=== PATIENT | male | born 1975 | race Caucasian/White ===

== ENCOUNTER 2017-09-01 17:40 | Inpatient (IN) ==
[2017-09-01] MEDS ORDERED: NORMAL SALINE 10 ML SYRINGE FLUSH IVP PRN ×2 (18:09→21:03)
[2017-09-01] MEDS ORDERED: Sodium Chloride 0.9% 1,000 ML PRIMARY IV ONE (18:09)
[2017-09-01 18:51] LABS: BASOPHILS # (AUTO) 0.04 10*3/UL; BASOPHILS % (AUTO) 0.2 % (0-1); EOSINOPHILS # (AUTO) 0.06 10*3/UL; EOSINOPHILS % (AUTO) 0.3 % (0-8); Hematocrit [HCT] 51.3 % (42.0-52.0); Hemoglobin [HGB] 17.6 g/dL (14.0-18.0); LYMPHOCYTES # (AUTO) 2.88 10*3/uL; MEAN CORPUSCULAR HEMOGLOBIN 29.8 PG (27-31); MEAN CORPUSCULAR HGB CONC 34.3 g/dL (33-37); MEAN CORPUSCULAR VOLUME 86.9 FL (80-90); MEAN PLATELET VOLUME 9.8 FL (7.4-12.2); MONOCYTES # (AUTO) 1.85 10*3/UL (0.3-0.8); MONOCYTES % (AUTO) 9.2 % (5-15); NEUTROPHILS # (AUTO) 15.13 10*3/UL; NEUTROPHILS % (AUTO) 75.6 % (50-80)
[2017-09-01 19:05] LABS: BLOOD UREA NITROGEN 14 mg/dL (7-22); SERUM ALBUMIN 3.7 g/dL (3.5-4.8)
[2017-09-01 19:07] LABS: PLATELET MORPHOLOGY COMMENT NORMAL MORPHOLOGY (NORM); RBC MORPHOLOGY COMMENT NORMAL MORPHOLOGY (NORM); WBC MORPHOLOGY COMMENT NORMAL MORPHOLOGY (NORM)
--- NOTE | 2017-09-01 20:00 | PDOC ---
HPI - History of Present Illness History of Present Illness: Is a very nice 42-year-old gentleman with past medical history of diabetes he has not been taking his medications for over the last couple of months comes into the emergency room complaining of an ulcer of the plantar part of his right foot under his big toe complains of some chills and his diabetes diagnosis is back 10 years ago his foot hurts quite a bit. Past Medical History Medical History: Diabetes uncontrolled Surgical History: Diabetic foot ulcer Tobacco Use: Current Every Day Smoker Do you dip or chew tobacco: No In the Past 12 Months, Have Used or Abuse Any of the Following Substance: None Alcohol Use: None Medication / Allergies Home Medications: Home Medications 3 Medication Instructions Recorded Confirmed Type NK [NK] 09/01/17 09/01/17 History Allergies/Adverse Reactions: Allergies 3 Allergy/AdvReac Type Severity Reaction Status Date / Time No Known Allergies Allergy Verified 09/01/17 20:45 Review of Systems - Review of Systems All Systems: Reviewed & No Additional Complaints Except as Stated - Respiratory Respiratory: DENIES: Negative System Review, Cough, Sputum, Dyspnea At Rest, Dyspnea with Exertion, Pleuritic Pain, Hemoptysis, Wheezing, Other, See HPI - Cardiovascular Cardiovascular: DENIES: Negative System Review, Chest Pain, Edema, Syncope, Palpitations, Orthopnea, Paroxysmal Nocturnal Dyspnea, Other, See HPI - Gastrointestinal Gastrointestinal / Abdominal: DENIES: Negative System Review, Nausea, Vomiting, Diarrhea, Constipation, Abdominal Pain, Bloody Stool, Poor Appetite, Heartburn, Regurgitation, Bloating, Lactose Intolerance, Melena, Bright Red Blood per Rectum, Other, See HPI - Musculoskeletal Musculoskeletal: REPORTS: Other (Diabetic foot ulcer on the right) Exam - Vitals Vital Signs: Vital Signs Temperature 97.4 F Temperature Source Temporal Artery Scan Pulse Rate [Pulse Oximeter] 107 Respiratory Rate 18 Blood Pressure [Left Radial 122/104 Artery] Pulse Ox 94 Oxygen Delivery Method Room Air Height 6 ft 5 in Weight 310 lb - General General Appearance: No Acute Distress, Cooperative - Eye Eye Exam: POSITIVE: Normal Appearance, PERRL, EOMI, No Scleral Icterus - ENT ENT Exam: POSITIVE: Normal Exam, Normal External Ear Exam, Normal Oropharynx, TM 's Normal Bilaterally, Mucous Membranes Moist - Respiratory Respiratory Exam: POSITIVE: Clear to Auscultation - Bilaterally, Breathing Non Labored, Normal To Percussion, Normal to Percussion and Palpation - Cardiovascular Cardiovascular Exam: POSITIVE: RRR, No Murmur, No Clicks, No Gallops, No Rubs, PMI Non-Displaced - GI/Abdominal GI/Abdominal Exam: POSITIVE: Normal Bowel Sounds, Non Tender, Non Distended, Soft, No Masses, No Hepatomegaly, No Splenomegaly, No Organomegaly - Extremities Additional Extremities Exam Details: Diabetic foot ulcer plantar area on the right big toe dressed by wound care losing not able to bear weight - Neurological Neurological Exam: POSITIVE: Alert, Oriented x 3, No Facial Droop, Speech Intact / Clear - Psychiatric Psychiatric Exam: POSITIVE: Normal Affect, Normal Mood Results - Labs CBC and BMP: 09/02/17 04:45 09/02/17 04:45 Assessment and Plan - Patient Problems (1) Diabetic foot ulcer Current Visit: Yes Status: Acute Comment: Consult wound care consult with Dr. Ann x-ray ordered for possible debridement will start Zosyn IV and vancomycin Code(s): E11.621 - Type 2 diabetes mellitus with foot ulcer; L97.509 - Non- pressure chronic ulcer of other part of unspecified foot with unspecified severity (2) Cellulitis Current Visit: Yes Status: Acute Comment: Start Zosyn IV elevated white count and vancomycin Code(s): L03.90 - Cellulitis, unspecified (3) Diabetes 1.5, managed as type 2 Current Visit: Yes Status: Acute Comment: Patient has not been treated for this check hemoglobin A1c current sugars are around 200 I will start Lantus 5 units tonight his morning sugar was around 220 hemoglobin A1c 9.5 Code(s): E10.9 - Type 1 diabetes mellitus without complications
[2017-09-01 20:15] LABS: HEMOGLOBIN A1C 9.47 % (4.2-6.0)
[2017-09-01] MEDS ORDERED: CALCIUM CARBONATE 500 MG (TUMS) CHEWABLE TABLET PO PRN (21:03)
[2017-09-01] MEDS ORDERED: ONDANSETRON 4 MG/2 ML VIAL IVP PRN (21:03)
[2017-09-01] MEDS ORDERED: LIDOCAINE W/ SODIUM BICARB 0.5 ML SYR SUBD PRN (21:03)
[2017-09-01] MEDS ORDERED: ACETAMINOPHEN 325 MG TABLET PO PRN (21:03)
[2017-09-01] MEDS ORDERED: fentaNYL Inj 100 MCG/2 ML VIAL IVP PRN (21:03)
[2017-09-01] MEDS ORDERED: DOCUSATE 100 MG CAPSULE PO PRN (21:03)
[2017-09-01] MEDS: Sodium Chloride 0.9% 1,000 ML PRIMARY IV SCH (22:07)
[2017-09-01] MEDS: Piperacillin/Tazobactam Inj 4.5 GM in Sodium Chloride 0.9% 100 ML IV SCH (22:07)
[2017-09-01] MEDS: HEPARIN 5000 UNIT/1 ML SUBCUT SCH (22:07)
[2017-09-01] MEDS: HYDROcodone-APAP 5 MG -325 MG TABLET PO PRN (22:18)
[2017-09-02] MEDS: HYDROcodone-APAP 5 MG -325 MG TABLET PO PRN ×4 (02:55→18:06)
[2017-09-02] MEDS: Piperacillin/Tazobactam Inj 4.5 GM in Sodium Chloride 0.9% 100 ML IV SCH ×4 (02:55→20:24)
[2017-09-02] MEDS: HEPARIN 5000 UNIT/1 ML SUBCUT SCH ×3 (04:39→20:24)
--- NOTE | 2017-09-02 05:13 | PDOC ---
Lower Extremity Problem HPI - General Chief Complaint: Lower Extremity Problem/Injury Stated Complaint: RIGHT FOOT ULCER x2 WEEKS Date Seen by Provider: 09/01/17 Time Seen by Provider: 17:50 Source: POSITIVE: Patient Exam Limitations: POSITIVE: No limitations Nurse's Notes Reviewed & Considered: Yes - History of Present Illness Initial Comments: The patient is a 42-year-old male. He presents to the emergency room complaining of a ulcer to the sole of his right foot, ulnar aspect over the distal right metatarsal for the past 2 weeks. This is gotten progressively worse. He states that he has had some "chills". Patient states that he was diagnosed with diabetes mellitus 10 years ago, but is not taking any medications. He thinks he may be having intermittent fevers. He is noted some redness and swelling to the distal aspect of the right lower leg and over the right foot laterally. He states he's noted a foul-smelling discharge. He states the lesion is quite painful. Patient has chronic hoarseness since the child, following intubation for a "viral encephalitis". He has a history of having had surgery to his throat. Body Location Affected: REPORTS: Lower Extremity (R) Timing: REPORTS: Gradual, Getting Worse Duration: >1 week (Progressively worse over the past 2 weeks) Severity: Moderate Recent Injury: REPORTS: No Context of Injury: REPORTS: Other (As above) Location at Time of Onset: REPORTS: Home Quality: REPORTS: "Pain" Modifying Factors: REPORTS: Walking, Other (Pain is exacerbated by walking and direct palpation) Associated Symptoms: REPORTS: Other (Chills and subjectively fever) Similar Symptoms Previously: No Recent Care Received: REPORTS: Denies Any Prior Injuries Related to Current Complaint?: No - Patient Home Medications Home Medications: Home Medications NK [NK] 09/01/17 - Patient Allergies Allergies/Adverse Reactions: Allergies 3 Allergy/AdvReac Type Severity Reaction Status Date / Time No Known Allergies Allergy Verified 09/01/17 20:45 Past Medical History - heen HEENT History: Other (please comment) Additional HEENT History: 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 REQUIRED 21 SURGERIES FROM AGE 3-8 YRS OLD Cardiovascular History: Hypertension Additional Cardiovasular History: REPORTS REMOTE HX. STATES NONE FOR 5-6 YRS Respiratory History: Asthma, Pneumonia, Other (please comment) Additional Respiratory History: FREQUENT BRONCHITIS. ATHLETIC INDUCED ASTHMA. HISTORY OF VIRAL ENCEPHALITIS AT AGE 1 RESULTING IN VOCAL CORD AND TRACHEAL DAMAGE AND PERMANENT HOARSENESS OF VOICE Gastrointestinal History: Other (please comment) Additional Gastrointestinal History: ABDOMINAL HERNIA Genitourinary History: Denies History Endocrine History: Type 2 Diabetes (diet) Additional Endocrine History: DIAGNOSED 10 YEARS AGO (STATES HE TOOK INSULIN FOR A SHORT TIME BUT FELT WORSE TAKING IT THAN WHEN NOT TAKING IT) Musculoskeletal History: Denies History Prosthesis or Implant: No Neurological History: Encephalitis Additional Neurological History: DIABETIC NEUROPATHY Blood Disorders: Denies History Psychiatric History: Denies History History of Sexually Transmitted Diseases: No Male Reproductive History: Denies History Cancer History: Denies History In Past Year Been Physically Harmed or Verbally Threatened: No (PER PATIENT) History of MDRO: No History of Other Communicable Diseases: No Tobacco Use: Current Every Day Smoker Type of alcohol normally used: Beer, Hard Liquor In the Past 12 Months, Have Used or Abuse Any Substance: None Previous Surgical History: Yes Type / Date of Surgery: THROAT SURGERY x21 Anesthesia Reactions: No Malignant Hyperthermia: No Family History of Malignant Hyperthermia: No Significant Family History: No pertinent family hx Past Medical History Reviewed: Reviewed - No Changes ROS - Limitations ROS Limitations: No Limitations Constitution: REPORTS: Chills, Fever (Subjectively) Cardiovascular: REPORTS: Denies Cardiac Symptoms Respiratory: REPORTS: Denies Resp Symptoms Neurological: REPORTS: Denies Neuro Symptoms Gastrointestinal: REPORTS: Denies GI Symptoms Endocrine: REPORTS: Denies Symptoms Musculoskeletal: REPORTS: Other (Ulcer plantar aspect of the right foot laterally with associated cellulitis) Genitourinary: REPORTS: Denies Symptoms Eyes: REPORTS: Denies Symptoms ENT: REPORTS: Denies Symptoms Skin: REPORTS: Other (Ulnar and her aspect of right foot as above; see diagram; associated cellulitis) Lympathic: REPORTS: Denies Lympathic Symptoms Immunologic: POSITIVE: Denies Symptoms Psychiatric: POSITIVE: Denies Psych Symptoms Lower Ext Problem Exam - General Appearance General Appearance: POSITIVE: Alert, Cooperative, No Acute Distress, No Evidence of Trauma - Extremities Lower Extremity: POSITIVE: Foot (Ulcer plantar aspect right foot as above; see diagram), Tenderness, Swelling, Pedal Edema (Cellulitis as above) Joint Exam: POSITIVE: Joints Normal, Normal ROM, Normal Gait, Normal Weight Bearing Vascular: POSITIVE: Full Pulses, Equal Pulses - Neuro / Psych Neuro/Psych: POSITIVE: Sensation Normal, Motor Normal, Oriented to Person, Oriented to Place, Oriented to Time, vehicle fare collector Normal as Tested, Mood Appropriate, Affect Appropriate - Neck / Back / Pelvis Back / Neck: POSITIVE: Normal Inspection, Normal ROM - Skin Skin: POSITIVE: Warmth, Erythema (Cellulitis lower right leg with ulcer plantar aspect right foot with some foul-smelling discharge; see diagram) - HEENT HEENT: POSITIVE: Head Inspection Nml, Eyes Inspection Nml, Ears Inspection Nml, Nose Inspection Nml, Oral/Dental Inspect. Nml, Pharynx Inspect. Nml, PERRL, EOMI - Respiratory / CVS Respiratory / CVS: POSITIVE: No Respiratory Distress, Breath Sounds Normal, Regular Rate/Rhythm, Heart Sounds Normal Peripheral Pulses: Radial (R): 2+, Radial (L): 2+, Dorsalis-pedis (R): 2+, Dorsalis-pedis (L): 2+ - Abdomen Abdomen: Soft: (All Quadrants), Normal Bowel Sounds: (All Quadrants), Denies Tenderness: (All Quadrants), No Splenomegaly: (All Quadrants), No Hepatomegaly: (All Quadrants), No Guarding: (All Quadrants), No Rebound: (All Quadrants), No Palpable Pulse: (All Quadrants), No Palpabale Mass: (All Quadrants), No Distention: (All Quadrants), No Rigidity: (All Quadrants) Images - Uploaded Photos Uploaded Photos: - Lower Extremities Feet: 1 - Ulcer 2 - Cellulitis 3 - Cellulitis 4 - Cellulitis 5 - Cellulitis Lower Ext Problem Progress - Results Reviewed by me Lab Results Reviewed by Me: Yes (blood cultures done; aerobic and anaerobic wound cultures taken) CBC and BMP: 09/01/17 18:40 09/01/17 18:40 - Patient's Progress Pain Medication Addressed: POSITIVE: Patient Refused School/Work Release Addressed: POSITIVE: Not Applicable Re-Examine Time: 19:35 Status: POSITIVE: Unchanged, Re-Examined - Consult Consult (If Yes, Name of Consulting MD & Time Called): Yes (Dr. Ochoa, hospitalist, 1935) Consulting MD will see pt:: POSITIVE: [facility] Admit Counseled: POSITIVE: Patient, Family, RE: Lab Results, RE: DX, RE: Need for F/U Patient Care Time - Estimated PCT Patient Care Time (In Minutes): 50 Vital Signs - VS Reviewed Vital Signs Reviewed: Yes Discharge Clinical Impression: Diabetic foot ulcer, Cellulitis, Diabetes mellitus Discharge Disposition: Admit to Inpatient Condition: Stable Date Decision to Admit to Inpatient: 09/01/17 Time Decision to Admit to Inpatient: 19:35
[2017-09-02 05:24] LABS: BASOPHILS # (AUTO) 0.03 10*3/UL; BASOPHILS % (AUTO) 0.2 % (0-1); EOSINOPHILS # (AUTO) 0.11 10*3/UL; EOSINOPHILS % (AUTO) 0.6 % (0-8); Hematocrit [HCT] 46.1 % (42.0-52.0); Hemoglobin [HGB] 15.3 g/dL (14.0-18.0); LYMPHOCYTES # (AUTO) 2.05 10*3/uL; MEAN CORPUSCULAR HEMOGLOBIN 28.9 PG (27-31); MEAN CORPUSCULAR HGB CONC 33.2 g/dL (33-37); MEAN CORPUSCULAR VOLUME 87.1 FL (80-90); MEAN PLATELET VOLUME 10.2 FL (7.4-12.2); MONOCYTES # (AUTO) 2.38 10*3/UL (0.3-0.8); MONOCYTES % (AUTO) 12.2 % (5-15); NEUTROPHILS # (AUTO) 14.96 10*3/UL; NEUTROPHILS % (AUTO) 76.2 % (50-80); RED BLOOD COUNT 5.29 10^6/uL (4.70-6.10)
[2017-09-02] MEDS ORDERED: Sodium Chloride 0.9% 1,000 ML ONE (05:48)
[2017-09-02 05:57] LABS: BLOOD UREA NITROGEN 12 mg/dL (7-22); PLATELET MORPHOLOGY COMMENT NORMAL MORPHOLOGY (NORM); RBC MORPHOLOGY COMMENT NORMAL MORPHOLOGY (NORM); WBC MORPHOLOGY COMMENT NORMAL MORPHOLOGY (NORM)
[2017-09-02] MEDS: Sodium Chloride 0.9% 1,000 ML PRIMARY IV SCH ×2 (07:10→23:16)
--- NOTE | 2017-09-02 14:49 | DI ---
XR FOOT COMPLETE MIN 3VW,09/02/2017 12:33 PM: Clinical History: Skin lesion involving the plantar aspect of the lateral right foot. Previous Exam: None at this facility. Findings: 3 views of the right foot are obtained, and demonstrate anatomic alignment. There is no fracture iden tified. There is overlying packing noted in the interspace between the fourth and fifth distal metata rsals as well as over the right fifth metatarsal and right fifth phalanx. There is some soft tissue swelling. There is no definite periosteal reaction identified and no ostial lysis. Impression: No definite evidence of acute osteomyelitis although this cannot be excluded.
--- NOTE | 2017-09-02 15:14 | PTI REPORT ---
Thank you for the referral of Pj Bhatti. He was seen on 09/02/17 for an inpatient evaluation secondary to a right lower extremity open wound. SUBJECTIVE: The patient is a 42-year-old male. According to the patient, he was diagnosed with being a Type II diabetic approximately 10 years ago and states that he has had a complicated past medical history of various wounds, starting as early as 1 -years-old when he was diagnosed with spinal meningitis. He reports approximately two weeks ago he first noticed the wound on his right lower extremity and started self treating; however, the wound has gotten bigger and started draining more and due to the pain and the increased drainage, he finally sought treatment in the emergency room where he subsequently was admitted to the hospital. At this time he is not sure what the plan is because he has yet to see the physician on the floor or the ortho doctor for a consult. The therapist spoke to the nurse prior to visiting with the patient and she states she has been having to change the dressing PRN due to excessive drainage. PAST MEDICAL HISTORY: Past medical history can be found in the patient's medical record. OBJECTIVE FINDINGS: The patient presents with communicating wounds on the right lower extremity from the base of the 5th the communicates between the 5th and the 4th toe. Between the 4th and the 5th toe there are irregular borders with maceration noted along the bases of the 4th and the 5th toe, both on the dorsal and plantar surface of the foot, also with a strong odor. It has a heavy amount of seropurulent drainage and a sterile q-tip is able to communicate between the two wounds and is approximately 9.5 centimeters. According to the nursing staff they have pictures on file. ASSESSMENT: Problem List: Risk of infection Risk of osteomyelitis Diabetic ulcer Delayed wound healing Physical Therapy Goals: To be met by discharge from inpatient: Patient will promote clean wound healing. TREATMENT PLAN: Patient will be seen on a PRN basis for wound care per wound presentation. INITIAL TREATMENT: Today's treatment consisted of the initial evaluation followed by cleansing the area with wound cleanser followed by an application of Cutimed Sorbact put in place by sterile Q-tip followed by Calamine lotion to prevent maceration around the wound areas. The area was dressed with a clean dressing of Kerlix, an ABD pad, and an Preston bandage. All supplies were provided by the third floor except for the Cutimed Sorbact which was utilized from the physical therapy department. The patient was also issued a bariatric walker and encouraged to walk with non weight-bearing on the right lower extremity to prevent further degradation of the wound site. [facility]
--- NOTE | 2017-09-02 15:43 | CONSULT ---
Consult Note - Consult Consult Date: 09/02/17 Reason for Consult: Orthopedic Consult Requesting Physician: Dr. Knox Primary Care Provider: NONE NONE - History of Present Illness History of Present Illness: Patient is a 42-year-old male who developed swelling and blister formation along the plantar aspect of the right fifth metatarsal head region. Patient had no penetrating trauma no specific injury had some soreness and a blister in that area and that he notes about a week ago started to have some drainage from the plantar aspect of the foot he's been dressing it with Silvadene and some other dressings and eventually started to have some drainage which came out along the web space region he was packing of his bottom wound. Patient normally wears sneakers he denies any penetrating trauma is diabetic and presented to the emergency room with this draining diabetic foot ulcer. Patient has not really treated his diabetes Welches recently starting to try and get this under control again states his blood sugars in the morning when in the mid 200s. He doesn't do her regular check of these. Patient notes he's had some chills but no fevers but he notes that this drainage and discomfort is increasing and is also had some increasing redness of the foot in general. Patient was admitted started on Zosyn and a consultation was called Past Medical History Medical History: Diabetes uncontrolled Surgical History: Diabetic foot ulcer Tobacco Use: Current Every Day Smoker Do you dip or chew tobacco: No In the Past 12 Months, Have Used or Abuse Any of the Following Substance: None Alcohol Use: None Medication / Allergies Home Medications: Home Medications 3 Medication Instructions Recorded Confirmed Type NK [NK] 09/01/17 09/01/17 History Allergies/Adverse Reactions: Allergies 3 Allergy/AdvReac Type Severity Reaction Status Date / Time No Known Allergies Allergy Verified 09/01/17 20:45 Exam - - Exam: Laboratory Results 09/01/17 09/01/17 09/01/17 Range/Units 18:40 18:40 18:40 WBC (4.8-10.8) 10^3/uL RBC (4.70-6.10) 10^6/uL Hgb (14.0-18.0) g/dL Hct (42.0-52.0) % MCV (80-90) FL MCH (27-31) PG MCHC (33-37) g/dL RDW Std Deviation (39-50) fL RDW Coeff of Sheeba (11.5-14.5) % Plt Count (140-350) 10*3/uL MPV (7.4-12.2) FL Immature Gran % (Auto) (0-5) % Neut % (Auto) (50-80) % Lymph % (Auto) (10-50) % Turner % (Auto) (5-15) % Eos % (Auto) (0-8) % Baso % (Auto) (0-1) % Immature Gran # (Auto) 10*3/UL Neut # (Auto) 10*3/UL Lymph # (Auto) 10*3/uL Turner # (Auto) (0.3-0.8) 10*3/UL Eos # (Auto) 10*3/UL Baso # (Auto) 10*3/UL WBC Morphology Comment (NORM) Plt Morphology Comment (NORM) RBC Morph Comment (NORM) D-Dimer 0.57 (0.00-0.59) mg/L Sodium (135-145) meq/L Potassium (3.8-5.2) meq/L Chloride (98-112) meq/L Carbon Dioxide (23-33) meq/L Anion Gap (5-20) BUN (7-22) mg/dL Creatinine (0.70-1.50) mg/dL Estimated GFR (>60 ml/min/1.73m(2)) BUN/Creatinine Ratio (6-20) Glucose (78-110) mg/dL Mean Blood Glucose mg/dL Hemoglobin A1c (4.2-6.0) % Calculated Osmolality (267-292) mOsm/kg Lactic Acid 1.0 (0.70-2.10) MMOL/L Calcium (8.7-10.7) mg/dL Total Bilirubin (0.3-1.2) mg/dL AST (21-57) IU/L ALT (21-72) IU/L Alkaline Phosphatase (38-126) IU/L C-Reactive Protein 25.6 H (0.0-0.9) mg/dL Total Protein (6.1-8.0) g/dL Albumin (3.5-4.8) g/dL Globulin (2.50-4.10) g/dL Albumin/Globulin Ratio (1.3-2.0) mg/g 09/01/17 09/01/17 09/01/17 Range/Units 18:40 18:40 18:40 WBC 20.02 H (4.8-10.8) 10^3/uL RBC 5.90 (4.70-6.10) 10^6/uL Hgb 17.6 (14.0-18.0) g/dL Hct 51.3 (42.0-52.0) % MCV 86.9 (80-90) FL MCH 29.8 (27-31) PG MCHC 34.3 (33-37) g/dL RDW Std Deviation 45.5 (39-50) fL RDW Coeff of Sheeba 14.3 (11.5-14.5) % Plt Count 241 (140-350) 10*3/uL MPV 9.8 (7.4-12.2) FL Immature Gran % (Auto) 0.3 (0-5) % Neut % (Auto) 75.6 (50-80) % Lymph % (Auto) 14.4 (10-50) % Turner % (Auto) 9.2 (5-15) % Eos % (Auto) 0.3 (0-8) % Baso % (Auto) 0.2 (0-1) % Immature Gran # (Auto) 0.06 10*3/UL Neut # (Auto) 15.13 10*3/UL Lymph # (Auto) 2.88 10*3/uL Turner # (Auto) 1.85 H (0.3-0.8) 10*3/UL Eos # (Auto) 0.06 10*3/UL Baso # (Auto) 0.04 10*3/UL WBC Morphology Comment Normal morphology (NORM) Plt Morphology Comment Normal morphology (NORM) RBC Morph Comment Normal morphology (NORM) D-Dimer (0.00-0.59) mg/L Sodium 133 L (135-145) meq/L Potassium 4.5 (3.8-5.2) meq/L Chloride 95 L (98-112) meq/L Carbon Dioxide 24 (23-33) meq/L Anion Gap 14 (5-20) BUN 14 (7-22) mg/dL Creatinine 0.7 (0.70-1.50) mg/dL Estimated GFR > 60 (>60 ml/min/1.73m(2)) BUN/Creatinine Ratio 20.00 (6-20) Glucose 232 H (78-110) mg/dL Mean Blood Glucose 229.351 mg/dL Hemoglobin A1c 9.47 H (4.2-6.0) % Calculated Osmolality 283.0 (267-292) mOsm/kg Lactic Acid (0.70-2.10) MMOL/L Calcium 9.0 (8.7-10.7) mg/dL Total Bilirubin 1.1 (0.3-1.2) mg/dL AST 8 L (21-57) IU/L ALT 24 (21-72) IU/L Alkaline Phosphatase 83 (38-126) IU/L C-Reactive Protein (0.0-0.9) mg/dL Total Protein 7.4 (6.1-8.0) g/dL Albumin 3.7 (3.5-4.8) g/dL Globulin 3.7 (2.50-4.10) g/dL Albumin/Globulin Ratio 1.00 L (1.3-2.0) mg/g 09/02/17 09/02/17 Range/Units 04:45 04:45 WBC 19.58 H (4.8-10.8) 10^3/uL RBC 5.29 (4.70-6.10) 10^6/uL Hgb 15.3 (14.0-18.0) g/dL Hct 46.1 (42.0-52.0) % MCV 87.1 (80-90) FL MCH 28.9 (27-31) PG MCHC 33.2 (33-37) g/dL RDW Std Deviation 45.5 (39-50) fL RDW Coeff of Sheeba 14.2 (11.5-14.5) % Plt Count 245 (140-350) 10*3/uL MPV 10.2 (7.4-12.2) FL Immature Gran % (Auto) 0.3 (0-5) % Neut % (Auto) 76.2 (50-80) % Lymph % (Auto) 10.5 (10-50) % Turner % (Auto) 12.2 (5-15) % Eos % (Auto) 0.6 (0-8) % Baso % (Auto) 0.2 (0-1) % Immature Gran # (Auto) 0.05 10*3/UL Neut # (Auto) 14.96 10*3/UL Lymph # (Auto) 2.05 10*3/uL Turner # (Auto) 2.38 H (0.3-0.8) 10*3/UL Eos # (Auto) 0.11 10*3/UL Baso # (Auto) 0.03 10*3/UL WBC Morphology Comment Normal morphology (NORM) Plt Morphology Comment Normal morphology (NORM) RBC Morph Comment Normal morphology (NORM) D-Dimer (0.00-0.59) mg/L Sodium 130 L (135-145) meq/L Potassium 4.0 (3.8-5.2) meq/L Chloride 99 (98-112) meq/L Carbon Dioxide 21 L (23-33) meq/L Anion Gap 10 (5-20) BUN 12 (7-22) mg/dL Creatinine 0.6 L (0.70-1.50) mg/dL Estimated GFR > 60 (>60 ml/min/1.73m(2)) BUN/Creatinine Ratio 20.00 (6-20) Glucose 258 H (78-110) mg/dL Mean Blood Glucose mg/dL Hemoglobin A1c (4.2-6.0) % Calculated Osmolality 278.0 (267-292) mOsm/kg Lactic Acid (0.70-2.10) MMOL/L Calcium 8.5 L (8.7-10.7) mg/dL Total Bilirubin (0.3-1.2) mg/dL AST (21-57) IU/L ALT (21-72) IU/L Alkaline Phosphatase (38-126) IU/L C-Reactive Protein (0.0-0.9) mg/dL Total Protein (6.1-8.0) g/dL Albumin (3.5-4.8) g/dL Globulin (2.50-4.10) g/dL Albumin/Globulin Ratio (1.3-2.0) mg/g Vital Signs (24 hrs) Temp Pulse Resp BP Pulse Ox 09/02/17 13:00 97.8 F 92 20 123/80 94 09/02/17 07:11 98.9 F 87 20 125/84 93 09/02/17 04:50 96.8 F 97 20 141/84 93 04/26/18 00:08 96.9 F 107 H 20 122/66 93 09/01/17 20:19 99.3 F 09/01/17 17:40 97.4 F 107 H 18 122/104 94 Examination shows that the patient's right foot along the left side looks fine on the right foot on the lateral aspect of the foot at the base of the fifth metatarsal region there is an open wound which when probed extends up towards the web space between the fourth and the fifth. With manipulation of the tissues proximally between the fourth and fifth webspace up from the joint a little bit there is a smelly brownish purulent discharge. The smells like Pseudomonas. Patient also with some redness along the dorsal aspect of the foot and up on to the lower leg region but he also looks like he has dramatic O Lara O sclerosis in this region. He has brisk refill generally he states his sensory exam is normal with palpation. His good motion of the toes and ankles. Radiographs of the foot show the packing which is in the wound this region there is certainly some changes around the distal portions of the metatarsal phalangeal joint regions I don't see any clear evidence of osteomyelitis. - Vitals Vital Signs: Vital Signs Temperature 97.8 F Temperature Source Temporal Artery Scan Pulse Rate [Pulse Oximeter] 92 Respiratory Rate 20 Blood Pressure [Left Radial 123/80 Artery] Pulse Ox 94 Oxygen Delivery Method Room Air Height 6 ft 5 in Weight 145.15 kg Results - Labs CBC and BMP: 09/02/17 04:45 09/02/17 04:45 Assessment and Plan - Assessment / Plan Additional Assessment/Plan Details: Impression: Diabetes poorly controlled by history with recent attempt to try and control was better. Diabetic foot ulcer which is developed into a likely abscess which is started spontaneously draining between the fourth and fifth toes. Plan: Patient is on IV Zosyn and will continue with this. We will continue with dressing changes and a washout. We will do this with physical therapy. We'll check this out tomorrow to see how it is progressing. If not progressing well we may wish to consider a washout. This will be done under anesthesia. - Time/Visit Time Spent With Patient: Greater Than 35 Mintues
--- NOTE | 2017-09-02 17:02 | DI ---
MRI Lower Extremity WO Jose,09/02/2017 3:51 PM: Clinical History: Diabetic ulcer with abscess of the right foot. Previous Exam: Plain films performed September 02, 2017 Findings: Multiplanar MR images are obtained through the right foot without contrast. Bony alignment is anatomi c. No fractures are seen. There is exam as it is packing material within the fourth and fifth inters pace. There is some prominence of the soft tissues of the right dorsum of the foot consistent with packing material and air. There is a trace amount of fluid surrounding the packing material. There is no othe r fluid collection identified. There is some mild thickening of the subcutaneous fat overlying this lesion. Tarsometatarsal ligaments and intertarsal ligaments are unremarkable. There is some mild increased marrow signal involving the fifth proximal phalanx and portions of the r ight fifth metatarsal head. There is no increased signal of the fourth metatarsal. The plantar fascia is not well evaluated but is grossly normal. The sesamoid bones appear grossly normal as well. Impression: 1. Trace amount of fluid within the subcutaneous fat of the right fourth and fifth dorsum of the foot . This most likely represents an abscess. 2. Edema of the distal fifth metatarsal and the proximal fifth phalanx. Cannot rule out the possibili ty of early osteomyelitis although this is a nonspecific finding, and could represent a traumatic pro cess.
[2017-09-02] MEDS: Insulin Lispro Flexpen 300 UNIT/3 ML INSULN.PEN SUBCUT SCH ×2 (17:30→20:27)
[2017-09-02] MEDS ORDERED: Insulin Glargine SoloStar Inj 100 UNIT/ML INSULN.PEN SUBCUT SCH (21:00)
[2017-09-03] MEDS: Piperacillin/Tazobactam Inj 4.5 GM in Sodium Chloride 0.9% 100 ML IV SCH ×5 (02:48→21:19)
[2017-09-03] MEDS: HEPARIN 5000 UNIT/1 ML SUBCUT SCH ×3 (05:22→20:44)
[2017-09-03] MEDS: Insulin Lispro Flexpen 300 UNIT/3 ML INSULN.PEN SUBCUT SCH ×4 (07:31→21:02)
[2017-09-03] MEDS: HYDROcodone-APAP 5 MG -325 MG TABLET PO PRN ×3 (07:35→19:09)
--- NOTE | 2017-09-03 09:10 | PDOC(PROG) ---
Date and Time of Service: 09/03/2017 9:11 AM Interval History: Subjective Patient came into the hospital because of worsening swelling in the leg and drainage. He said the swelling and the drainage started about 2 weeks ago. About 2 months ago he had what he thought a blister on that leg but that's healed up but then 2 weeks ago started swelling and then drainage with some intermittent pain. Sometimes the pain is worse with walking. He is not sure whether he had fever. He came into the ER was found to have a diabetic foot infection and was admitted. Maybe a little bit better in terms of the swelling. He denied other symptoms. He said he had a history of diabetes for about 10 years however he is not being on medication for about 3 years. Intermittently he would have some burning in his feet he said. He was not taking any medications before coming to the hospital. Objective : Data - Labs CBC and BMP: 09/03/17 09:20 09/03/17 09:20 Objective : Exam - General General Appearance: No Acute Distress, Cooperative, Obese - Head Head Exam: Normal Inspection - Eye Eye Exam: Normal Appearance - ENT ENT Exam: Normal Exam - Neck Neck Exam: Normal Inspection - Respiratory Respiratory Exam: Clear to Auscultation - Bilaterally - Cardiovascular Cardiovascular Exam: RRR - GI/Abdominal GI/Abdominal Exam: Normal Bowel Sounds, Non Tender, Non Distended, Soft, No Organomegaly - Rectal Rectal Exam: Deferred - External Exam: Deferred - Extremities Additional Extremities Exam Details: Swelling of the right leg noted compared to the left. No obvious erythema. Dressing applied to the right foot. - Back Back Exam: Normal Inspection - Neurological Neurological Exam: Alert, Oriented x 3, CN II-XII Intact, No Facial Droop, Speech Intact / Clear, Moves All Extremities Equally - Psychiatric Psychiatric Exam: Normal Affect Assessment and Plan - Patient Problems (1) Diabetic foot ulcer Current Visit: Yes Status: Acute Comment: Continue current antibiotics until we have culture result. Will order repeat labs today. Code(s): E11.621 - Type 2 diabetes mellitus with foot ulcer; L97.509 - Non- pressure chronic ulcer of other part of unspecified foot with unspecified severity (2) Cellulitis Current Visit: Yes Status: Acute Comment: He is covered with antibiotics. There is some swelling in the right leg compared to left this is maybe secondary to infection sound but I think will do an ultrasound of the leg. Code(s): L03.90 - Cellulitis, unspecified (3) Diabetes 1.5, managed as type 2 Current Visit: Yes Status: Acute Comment: Blood sugar still elevated in the morning I think will increase the Lantus continue the sliding scale. Code(s): E10.9 - Type 1 diabetes mellitus without complications
[2017-09-03 09:43] LABS: BASOPHILS # (AUTO) 0.02 10*3/UL; BASOPHILS % (AUTO) 0.2 % (0-1); EOSINOPHILS # (AUTO) 0.11 10*3/UL; EOSINOPHILS % (AUTO) 0.9 % (0-8); Hematocrit [HCT] 43.6 % (42.0-52.0); Hemoglobin [HGB] 14.2 g/dL (14.0-18.0); LYMPHOCYTES # (AUTO) 1.66 10*3/uL; MEAN CORPUSCULAR HEMOGLOBIN 28.6 PG (27-31); MEAN CORPUSCULAR HGB CONC 32.6 g/dL (33-37); MEAN CORPUSCULAR VOLUME 87.7 FL (80-90); MEAN PLATELET VOLUME 10.1 FL (7.4-12.2); MONOCYTES # (AUTO) 1.21 10*3/UL (0.3-0.8); MONOCYTES % (AUTO) 9.4 % (5-15); NEUTROPHILS # (AUTO) 9.84 10*3/UL; NEUTROPHILS % (AUTO) 76.4 % (50-80); RED BLOOD COUNT 4.97 10^6/uL (4.70-6.10)
[2017-09-03 09:46] LABS: BLOOD UREA NITROGEN 8 mg/dL (7-22); BUN/CREATININE RATIO 13.33 (6-20); PLATELET MORPHOLOGY COMMENT NORMAL MORPHOLOGY (NORM); RBC MORPHOLOGY COMMENT NORMAL MORPHOLOGY (NORM); WBC MORPHOLOGY COMMENT NORMAL MORPHOLOGY (NORM)
--- NOTE | 2017-09-03 12:03 | ORTHO.PROG ---
Last Taken Vital Signs: Vital Signs - Last Taken Temperature 97.4 F 09/03/17 11:39 Pulse Rate 83 09/03/17 11:39 Respiratory Rate 22 09/03/17 11:39 Blood Pressure 119/74 09/03/17 11:39 Pulse Ox 94 09/03/17 11:39 Subjective: Patient notes no real difference in pain or symptoms in the right foot abscess Objective: Examination with the dressing removed and the packing removed shoulder skin is extremely macerated a lot of drainage a lot of odor from the drainage in the wound area. Redness along the dorsal aspect of the foot seems to be unchanged but no clear fluctuance little tenderness to palpation around the open wounds on the plantar aspect of the foot the tissue actually looked relatively healthy but there is a sinus tract a lot of callus around this the dorsal aspect of the foot between the webspace of the fourth and fifth a lot of drainage and opening the wound which had dehisced on its own. Laboratory Results 09/03/17 09/03/17 Range/Units 09:20 09:20 WBC 12.87 H (4.8-10.8) 10^3/uL RBC 4.97 (4.70-6.10) 10^6/uL Hgb 14.2 (14.0-18.0) g/dL Hct 43.6 (42.0-52.0) % MCV 87.7 (80-90) FL MCH 28.6 (27-31) PG MCHC 32.6 L (33-37) g/dL RDW Std Deviation 44.4 (39-50) fL RDW Coeff of Sheeba 14.1 (11.5-14.5) % Plt Count 257 (140-350) 10*3/uL MPV 10.1 (7.4-12.2) FL Immature Gran % (Auto) 0.2 (0-5) % Neut % (Auto) 76.4 (50-80) % Lymph % (Auto) 12.9 (10-50) % Blackford % (Auto) 9.4 (5-15) % Eos % (Auto) 0.9 (0-8) % Baso % (Auto) 0.2 (0-1) % Immature Gran # (Auto) 0.03 10*3/UL Neut # (Auto) 9.84 10*3/UL Lymph # (Auto) 1.66 10*3/uL Blackford # (Auto) 1.21 H (0.3-0.8) 10*3/UL Eos # (Auto) 0.11 10*3/UL Baso # (Auto) 0.02 10*3/UL WBC Morphology Comment Normal morphology (NORM) Plt Morphology Comment Normal morphology (NORM) RBC Morph Comment Normal morphology (NORM) Sodium 132 L (135-145) meq/L Potassium 4.2 (3.8-5.2) meq/L Chloride 100 (98-112) meq/L Carbon Dioxide 23 (23-33) meq/L Anion Gap 9 (5-20) BUN 8 (7-22) mg/dL Creatinine 0.6 L (0.70-1.50) mg/dL Estimated GFR > 60 (>60 ml/min/1.73m(2)) BUN/Creatinine Ratio 13.33 (6-20) Glucose 284 H (78-110) mg/dL Calculated Osmolality 281.0 (267-292) mOsm/kg Calcium 8.3 L (8.7-10.7) mg/dL Microbiology 09/01/17 18:40 Gram Stain - Final Abscess - Left Little Anaerobic Culture - Pending Aerobic Culture - Preliminary Enterobacter Cloacae Ssp Cloac 09/01/17 18:45 Blood Culture - Preliminary Blood NO GROWTH AFTER 24 HOURS 09/01/17 18:40 Blood Culture - Preliminary Blood NO GROWTH AFTER 24 HOURS Enterobacter cloaca sensitive to penicillin Assessment: Diabetic with diabetic foot abscess right foot Plan: We discussed the patient's current condition and clinical findings as it pertains to the current situation. Surgical versus nonsurgical options risks and benefits were discussed and reviewed. Options moving forward include but are not limited to continued choice to live with their current condition; evaluate their current condition further with imaging studies and/or diagnostic testing, etc.; treat problem/problems with surgical versus nonsurgical methods. The patient demonstrates a clear understanding of our discussion. All questions were answered. Surgical versus nonsurgical options risks and benefits were Discussed and reviewed. Risks include but are not limited to bleeding, infection, neurovascular damage, wound problems, deep vein thromboses, pulmonary embolism, need for further surgery, and loss of life and limb. Certainly any surgical procedure may not improve symptoms and potentially could makes symptoms worse. There are no guarantees implied with the discussion of surgical treatment. All questions were answered and the patient wishes to proceed with surgical treatment. Spent time discussing issues in regard to the foot the diabetes and his response to the antibiotics. I certainly don't think that this is moving in the right direction and based on the findings today I would recommend an incision and drainage to open this up bit more into a washout the best we can what bacteria are in their possibly undergoing a washout again if things don't continue to respond but I think this is needed in order to try to move forward. Patient agrees and wishes to proceed with the surgical procedure.
[2017-09-03] MEDS ORDERED: MIDAZOLAM 5 MG/1 ML ONE (12:19)
[2017-09-03] MEDS ORDERED: fentaNYL Inj 250 MCG/5 ML VIAL ONE (12:19)
[2017-09-03] MEDS ORDERED: MEPIVACAINE HCL/PF 20 MG/1 ML ONE ×2 (12:20→12:25)
[2017-09-03] MEDS ORDERED: LIDOCAINE 2%/ EPI 1:200,000 - 20 ML VIAL ONE (12:20)
[2017-09-03] MEDS ORDERED: LIDOCAINE W/ SODIUM BICARB 0.5 ML SYR ONE (12:47)
[2017-09-03] MEDS ORDERED: Lactated Ringers 1,000 ML PRIMARY IV ONE (12:47)
[2017-09-03] MEDS ORDERED: PROPOFOL 10 MG/1 ML (200 MG/20 ML) VIAL IV ONE ×2 (12:56→14:25)
[2017-09-03] MEDS ORDERED: Vancomycin Inj 1gm vial ONE (13:25)
[2017-09-03] MEDS ORDERED: Sodium Chloride 0.9% vial 10 ML ONE (13:25)
[2017-09-03] MEDS ORDERED: Gentamicin Inj 40 MG/ML VIAL ONE (13:25)
[2017-09-03] MEDS ORDERED: KETAMINE 100 MG/1 ML - 5 ML ONE (14:25)
[2017-09-03] MEDS: Sodium Chloride 0.9% 1,000 ML PRIMARY IV SCH (14:48)
--- NOTE | 2017-09-03 15:27 | ORTHO.OP ---
- - -: See Dictated Operative Report Procedure Codes - Miscellaneous Procedures Primary Miscellaneous Procedure Codes: 41068 : Hardware Removal (25901 cpt)
--- NOTE | 2017-09-03 15:45 | CRNA.PROGR ---
Anesthesia Time - - Start date: 09/03/17 End date: 09/03/17 - Procedure/Recovery Time Anesthesia : Time In: 14:07 Anesthesia : Time Out: 15:31 Anesthesia : Total Time: 84 - Total Anesthesia Time Total Anesthesia Time (minutes): 84 - Other Weight: 145.15 kg Height: 6 ft 5 in Body Mass Index (BMI): 37.9 Physical Status: P3 (Obesity, Uncontrollled diabetes with peripheral damage.) Anesthesia Type: General Anesthesia : LMA
--- NOTE | 2017-09-03 15:47 | CRNA.PROGR ---
Post Anesthesia Phase II - Post Anesthesia Phase II Patient Stable and Discharged To: Med/Surg Care Assumed By Surgeon: Gurwinder Ann MD Temperature: 98.2 F Pulse Rate: 98 Respiratory Rate: 21 Blood Pressure: 157/85 Pulse Ox: 98 Total Kai Score at Discharge: 9 Post Anesthesia Discharge Criteria Met: Yes
--- NOTE | 2017-09-03 15:47 | CRNA.PROCE ---
Nerve Block Documentation - - Safety Measures: Time Out Taken - - Type of Nerve Block Used: Right Popliteal Fossa Block Position for Nerve Block: Prone Moniters Used During Block: EKG, SPO2, NIBP Oxygen Supplemented: Yes Sedation Used - Enter Amount in Comment Field [ANES.SEDAT]: Midazolam (mg): Yes (3), Fentanyl (mcg): Yes (100) Skin Prep Used: ChloroPrep Draped: No Technique: Nerve Stimulator Nerve Block Needle Used: 100 mm ProBlk II Stimulation Hz: 1.8 Stimulation Staring mA: 0.48 Local Anesthetic - Enter Amt in Comment Field [ANES.LOCNB]: 2 % Xylocaine with Epinephrine 1:200,000 (mL): Yes (20 ml ), 2 % Mepivacaine (mL): Yes (40 ml) - - PreOp Block : Time In: 13:40 PreOp Block : Time Out: 14:01 Anesthesia Time - Other Weight: 145.15 kg Height: 6 ft 5 in Body Mass Index (BMI): 37.9
[2017-09-03] MEDS ORDERED: ACETAMINOPHEN 325 MG TABLET PO PRN (15:52)
[2017-09-03] MEDS ORDERED: LIDOCAINE W/ SODIUM BICARB 0.5 ML SYR SUBD PRN (15:52)
[2017-09-03] MEDS ORDERED: CALCIUM CARBONATE 500 MG (TUMS) CHEWABLE TABLET PO PRN (15:52)
[2017-09-03] MEDS ORDERED: fentaNYL Inj 100 MCG/2 ML VIAL IVP PRN (15:52)
[2017-09-03] MEDS ORDERED: DOCUSATE 100 MG CAPSULE PO PRN (15:52)
[2017-09-03] MEDS ORDERED: ONDANSETRON 4 MG/2 ML VIAL IVP PRN ×2 (15:52)
--- NOTE | 2017-09-03 16:32 | OTI REPORT ---
Thank you for the referral of Pj Bhatti. He was seen on 09/02/17 for an occupational therapy inpatient evaluation secondary to a right lower extremity open wound. SUBJECTIVE: The patient is a 42-year-old male. Prior to admission the patient was independent with all ADLs including getting in and out of his bathtub, dressing self, ambulating throughout his home, etc. The patient does live with his who is able to help throughout the home as well. It was observed that the patient has a very breathy type voice. He reports that he has had several surgeries in the pharyngeal region along with the voice box and diaphragm. When asked if he has had any swallowing issues, he reported no. He also stated there is another surgery that they can do for the voice box, but he is not choosing to do that at this point in time. He has had Diabetes for about 10 years. PAST MEDICAL HISTORY: Past medical history can be found in the patient's medical record. OBJECTIVE FINDINGS: Range of motion: Today the patient had within functional limits for active range of motion. Strength: Strength throughout upper extremities was 4+/5. Activities of daily living: The patient is independent with dressing self after set up. The patient can be independent with showering activities. Transfers: The patient is independent with functional transfers. ASSESSMENT: The patient is doing well with ADLs and functional transfers. He is here to work on his wound which is being seen by Dr. Ann and Mariangel Calloway, SUDHAKAR. One thing that OT can help with is getting the patient a shower chair to be able to sit on when showering in order to not place weight on the foot when he is showering. The patient was issued a shower chair today. Other than that, skilled occupational therapy is not further indicated with this patient. TREATMENT PLAN: Patient will be discharged from occupational therapy at this time. INITIAL TREATMENT: Treatment today consisted of the initial evaluation activities only. The patient was issued a shower chair and instructed in its proper use and care. STAS
[2017-09-03] MEDS ORDERED: Insulin Glargine SoloStar Inj 100 UNIT/ML INSULN.PEN SUBCUT SCH ×2 (21:00)
[2017-09-03] MEDS ORDERED: Piperacillin/Tazobactam Inj 4.5 GM in Sodium Chloride 0.9% 100 ML IV SCH (21:00)
[2017-09-04] MEDS: HYDROcodone-APAP 5 MG -325 MG TABLET PO PRN ×5 (00:13→20:32)
[2017-09-04] MEDS: HEPARIN 5000 UNIT/1 ML SUBCUT SCH ×3 (04:45→20:32)
[2017-09-04] MEDS: Piperacillin/Tazobactam Inj 4.5 GM in Sodium Chloride 0.9% 100 ML IV SCH ×2 (04:45→10:07)
[2017-09-04 06:31] LABS: Hematocrit [HCT] 42.4 % (42.0-52.0); Hemoglobin [HGB] 13.9 g/dL (14.0-18.0); MEAN CORPUSCULAR HEMOGLOBIN 29.2 PG (27-31); MEAN CORPUSCULAR HGB CONC 32.8 g/dL (33-37); MEAN CORPUSCULAR VOLUME 89.1 FL (80-90); MEAN PLATELET VOLUME 10.5 FL (7.4-12.2); RED BLOOD COUNT 4.76 10^6/uL (4.70-6.10)
[2017-09-04 06:55] LABS: BLOOD UREA NITROGEN 9 mg/dL (7-22); BUN/CREATININE RATIO 12.85 (6-20)
[2017-09-04] MEDS: Insulin Lispro Flexpen 300 UNIT/3 ML INSULN.PEN SUBCUT SCH ×4 (06:58→20:35)
[2017-09-04 07:08] LABS: BAND NEUTROPHILS % 4 % (0-10); BASOPHILS % (MANUAL) 0 % (0-1); EOSINOPHILS % (MANUAL) 1 % (0-8); MONOCYTES % (MANUAL) 7 % (0-12); NEUTROPHILS % (MANUAL) 61 % (50-80); PLATELET MORPHOLOGY COMMENT SEE COMMENTS (NORM); RBC MORPHOLOGY COMMENT NORMAL MORPHOLOGY (NORM); WBC MORPHOLOGY COMMENT NORMAL MORPHOLOGY (NORM)
[2017-09-04 07:12] LABS: HIV ANTIBODY NEGATIVE (N); HIV-1 P24 ANTIGEN NEGATIVE (N)
--- NOTE | 2017-09-04 11:07 | PDOC(PROG) ---
Date and Time of Service: 09/04/2017 11:19 AM Interval History: Subjective Patient had washout done yesterday by Dr. Ann after we saw his wound. There was foul-smelling drainage in addition there was ulcer noted on the plantar aspect of the foot. Probably opened between the web of the fifth and fourth toe. He is denying new symptoms. Pain seemed to be controlled with current pain medications. Objective : Data - Labs CBC and BMP: 09/04/17 04:46 09/04/17 04:46 Objective : Exam - General General Appearance: No Acute Distress, Cooperative, Obese - Head Head Exam: Normal Inspection - Eye Eye Exam: Normal Appearance - ENT ENT Exam: Normal Exam - Neck Neck Exam: Normal Inspection - Respiratory Respiratory Exam: Clear to Auscultation - Bilaterally - Cardiovascular Cardiovascular Exam: RRR - GI/Abdominal GI/Abdominal Exam: Normal Bowel Sounds, Non Tender, Non Distended, Soft, No Organomegaly - Rectal Rectal Exam: Deferred - External Exam: Deferred - Extremities Additional Extremities Exam Details: Dressing applied to the right foot right leg still swollen. - Back Back Exam: Normal Inspection - Neurological Neurological Exam: Alert, Oriented x 3, CN II-XII Intact, Speech Intact / Clear , Moves All Extremities Equally Assessment and Plan - Patient Problems (1) Diabetic foot ulcer Current Visit: Yes Status: Acute Comment: The growth showed Enterobacter. We DC the vancomycin and Zosyn put him on the Invanz. We'll see what the wound looks today. Code(s): E11.621 - Type 2 diabetes mellitus with foot ulcer; L97.509 - Non- pressure chronic ulcer of other part of unspecified foot with unspecified severity (2) Cellulitis Current Visit: Yes Status: Acute Comment: Continue Invanz. The ultrasound was not done yesterday we'll order it for today again. Code(s): L03.90 - Cellulitis, unspecified (3) Diabetes 1.5, managed as type 2 Current Visit: Yes Status: Acute Comment: We'll increase his Lantus. Blood sugar numbers are better. Code(s): E10.9 - Type 1 diabetes mellitus without complications
--- NOTE | 2017-09-04 11:47 | ORTHO.PROG ---
Last Taken Vital Signs: Vital Signs - Last Taken Temperature 97.6 F 09/04/17 09:00 Pulse Rate 81 09/04/17 09:00 Respiratory Rate 20 09/04/17 09:00 Blood Pressure 141/70 09/04/17 09:00 Pulse Ox 92 09/04/17 09:00 Subjective: Patient notes his pain is well controlled on oral medication Objective: Patient's dressing is in place he has generalized redness and venous Josh's stasis changes in the right leg which are improving the swelling is going down little drainage on the distal aspect of the dressing. Gram stain showed some gram-positive cocci and white blood cells. Cultures are negative to date. The cultures which were obtained at time of admission grew out Enterobacter cloaca Laboratory Results 09/04/17 09/04/17 09/04/17 Range/Units 04:46 04:46 04:46 WBC 11.35 H (4.8-10.8) 10^3/uL RBC 4.76 (4.70-6.10) 10^6/uL Hgb 13.9 L (14.0-18.0) g/dL Hct 42.4 (42.0-52.0) % MCV 89.1 (80-90) FL MCH 29.2 (27-31) PG MCHC 32.8 L (33-37) g/dL RDW Std Deviation 44.6 (39-50) fL RDW Coeff of Sheeba 14.0 (11.5-14.5) % Plt Count 276 (140-350) 10*3/uL MPV 10.5 (7.4-12.2) FL Neutrophils % (Manual) 61 (50-80) % Band Neutrophils % 4 (0-10) % Lymphocytes % (Manual) 27 (10-50) % Monocytes % (Manual) 7 (0-12) % Eosinophils % (Manual) 1 (0-8) % Basophils % (Manual) 0 (0-1) % Metamyelocytes % Not Reportable Myelocytes % Not Reportable Promyelocytes % Not Reportable Blast Cells Not Reportable WBC Morphology Comment Normal morphology (NORM) Plt Morphology Comment See comments (NORM) RBC Morph Comment Normal morphology (NORM) Sodium 134 L (135-145) meq/L Potassium 4.0 (3.8-5.2) meq/L Chloride 100 (98-112) meq/L Carbon Dioxide 26 (23-33) meq/L Anion Gap 8 (5-20) BUN 9 (7-22) mg/dL Creatinine 0.7 (0.70-1.50) mg/dL Estimated GFR > 60 (>60 ml/min/1.73m(2)) BUN/Creatinine Ratio 12.85 (6-20) Glucose 171 H (78-110) mg/dL Calculated Osmolality 280.0 (267-292) mOsm/kg Calcium 8.6 L (8.7-10.7) mg/dL Hep Bs Antigen Pending Hepatitis C Antibody Pending HIV 1&2 Antibody Rapid Negative (N) HIV P24 Antigen Negative (N) Assessment: Diabetic foot ulcer right foot abscess diabetic foot ulcer Plan: Dressing is going to be changed this afternoon be about 24 hour period will continue with the wound care and dressing possibly consider irrigating this out again depending in how this works over the next couple days. Patient has been switched apparently to ertapenem. We'll await the cultures. I'm not convinced that this may not require further surgery to include partial amputation of the foot moving forward as I discussed with the patient and his
--- NOTE | 2017-09-04 12:35 | DI ---
INDICATION: Swelling TECHNIQUE: Real-time imaging of the right common femoral, superficial femoral and popliteal veins is performed utilizing intermittent compression. The study is supplemented with color flow imaging and duplex Doppler during spontaneous flow, Valsalva and calf augmentation. COMPARISON: None FINDINGS: Normal compressibility is demonstrated from the common femoral vein to the popliteal vein. There is normal response to Valsalva and augmentation. Normal spontaneous phasic flow is noted. IMPRESSION: No evidence of deep venous thrombosis in the right lower extremity.
[2017-09-04] MEDS: HYDROmorphone 2 MG/1 ML IVP PRN (14:07)
[2017-09-04] MEDS: Ertapenem Inj 1 GM in Sodium Chloride 0.9% 100 ML IV SCH (16:16)
[2017-09-04] MEDS ORDERED: Insulin Glargine SoloStar Inj 100 UNIT/ML INSULN.PEN SUBCUT SCH (21:00)
[2017-09-05] MEDS: HYDROcodone-APAP 5 MG -325 MG TABLET PO PRN ×4 (04:04→23:51)
[2017-09-05] MEDS: HEPARIN 5000 UNIT/1 ML SUBCUT SCH ×3 (04:04→21:08)
[2017-09-05] MEDS: Insulin Lispro Flexpen 300 UNIT/3 ML INSULN.PEN SUBCUT SCH ×4 (07:46→21:07)
--- NOTE | 2017-09-05 09:05 | PDOC(PROG) ---
Date and Time of Service: 09/05/2017 9:07 AM Interval History: Subjective Patient said his pain level is fluctuating but seems to be controlled with current pain medications. Objective : Data - Labs CBC and BMP: 09/04/17 04:46 09/04/17 04:46 Objective : Exam - General General Appearance: No Acute Distress, Cooperative, Obese - Head Head Exam: Normal Inspection, Atraumatic - Eye Eye Exam: Normal Appearance - ENT ENT Exam: Normal Exam - Neck Neck Exam: Normal Inspection - Respiratory Respiratory Exam: Clear to Auscultation - Bilaterally - Cardiovascular Cardiovascular Exam: RRR - GI/Abdominal GI/Abdominal Exam: Normal Bowel Sounds, Non Tender, Non Distended, Soft, No Organomegaly - Rectal Rectal Exam: Deferred - External Exam: Deferred - Extremities Additional Extremities Exam Details: Still some swelling in the right leg compared to the left. Ultrasound of the leg was negative. Dressing applied to the foot. Yesterday did examine the foot after removal of the dressing shows an ulcer on the plantar aspect of the foot and there is a pocket of about 2-1/2 cm deep that was on the dorsal aspect of the foot which communicate with the ulcer Chronic dermatitic changes noted - Neurological Neurological Exam: Alert, Oriented x 3, CN II-XII Intact, Speech Intact / Clear , Moves All Extremities Equally - Psychiatric Psychiatric Exam: Normal Affect Assessment and Plan - Patient Problems (1) Diabetic foot ulcer Current Visit: Yes Status: Acute Comment: Continue current antibiotics. I leave it up to Dr. Ann to decide about the next step whether he needs more washout or other surgery. Code(s): E11.621 - Type 2 diabetes mellitus with foot ulcer; L97.509 - Non- pressure chronic ulcer of other part of unspecified foot with unspecified severity (2) Cellulitis Current Visit: Yes Status: Acute Comment: Continue antibiotics Code(s): L03.90 - Cellulitis, unspecified (3) Diabetes 1.5, managed as type 2 Current Visit: Yes Status: Acute Comment: He is on Lantus and sliding scale continue I think will increase the Lantus more. Code(s): E10.9 - Type 1 diabetes mellitus without complications
[2017-09-05] MEDS: HYDROmorphone 2 MG/1 ML IVP PRN (14:18)
--- NOTE | 2017-09-05 14:45 | ORTHO.PROG ---
Last Taken Vital Signs: Vital Signs - Last Taken Temperature 97 F 09/05/17 11:23 Pulse Rate 86 09/05/17 11:23 Respiratory Rate 20 09/05/17 11:23 Blood Pressure 152/89 09/05/17 11:23 Pulse Ox 95 09/05/17 11:23 Subjective: Patient notes to be feeling relatively well still pain in the foot. Pain controlled with oral medications except for dressing change. Objective: With the dressing off for the wound on the bottom aspect of the foot and the space along the webspace between the second and third had serous he drainage with blood was also a blister more proximally but the tissue on the top of the foot blanched well the wound itself was deep but there was no pocket of fluid or other changes same thing with the plantar aspect of the foot with palpation along the plantar aspect of the foot after removing the perform this was without any fluctuant areas or drainage with pressing around the wound was before. There is no odor to the foot at the current time. The leg is getting more wrinkles is a swelling is going down as well as her foot. Microbiology 09/03/17 15:00 Foot - Right Gram Stain - Final 09/03/17 15:00 Foot - Right Anaerobic Culture - Final 09/03/17 15:00 Foot - Right Aerobic Culture - Final 09/01/17 18:40 Abscess - Left Little Gram Stain - Final 09/01/17 18:40 Abscess - Left Little Anaerobic Culture - Final 09/01/17 18:40 Abscess - Left Little Aerobic Culture - Final Enterobacter Cloacae Ssp Cloac Strep Agalactiae Vital Signs (24 hrs) Temp Pulse Pulse Resp BP Pulse Ox 09/05/17 11:23 97 F 86 20 152/89 95 09/05/17 07:00 16 09/05/17 06:54 97.3 F 80 20 145/94 95 09/05/17 06:53 78 09/05/17 04:44 98.7 F 85 20 136/72 91 09/05/17 04:22 91 09/05/17 00:11 98.6 F 90 20 133/76 94 09/04/17 21:00 89 20 132/74 92 09/04/17 19:00 84 84 20 09/04/17 16:31 98.3 F 84 20 134/80 91 The anaerobic cultures at time of surgery grew B. Fragiles Assessment: Right foot diabetic ulcer with abscess after incision and drainage as well as irrigation and drainage improving on ertapenem Plan: Continue with current care of the foot. Patient's diabetes is slowly improving with control of his blood sugars. Hopefully we will continue to observe this over the next couple days and this hopefully will continue to improve over the right direction.
[2017-09-05] MEDS: Ertapenem Inj 1 GM in Sodium Chloride 0.9% 100 ML IV SCH (16:09)
[2017-09-05] MEDS ORDERED: Insulin Glargine SoloStar Inj 100 UNIT/ML INSULN.PEN SUBCUT SCH (21:00)
[2017-09-06] MEDS: HEPARIN 5000 UNIT/1 ML SUBCUT SCH ×3 (04:34→20:11)
[2017-09-06] MEDS: HYDROcodone-APAP 5 MG -325 MG TABLET PO PRN ×2 (04:43→17:25)
[2017-09-06 05:52] LABS: Hematocrit [HCT] 42.9 % (42.0-52.0); Hemoglobin [HGB] 14.3 g/dL (14.0-18.0); MEAN CORPUSCULAR HEMOGLOBIN 29.5 PG (27-31); MEAN CORPUSCULAR HGB CONC 33.3 g/dL (33-37); MEAN CORPUSCULAR VOLUME 88.6 FL (80-90); MEAN PLATELET VOLUME 9.9 FL (7.4-12.2); RED BLOOD COUNT 4.84 10^6/uL (4.70-6.10)
[2017-09-06 06:01] LABS: BLOOD UREA NITROGEN 9 mg/dL (7-22); BUN/CREATININE RATIO 12.85 (6-20)
[2017-09-06 06:03] LABS: PLATELET MORPHOLOGY COMMENT NORMAL MORPHOLOGY (NORM); RBC MORPHOLOGY COMMENT NORMAL MORPHOLOGY (NORM); WBC MORPHOLOGY COMMENT NORMAL MORPHOLOGY (NORM)
[2017-09-06 06:12] LABS: BAND NEUTROPHILS % 3 % (0-10); MONOCYTES % (MANUAL) 7 % (0-12); NEUTROPHILS % (MANUAL) 59 % (50-80)
[2017-09-06 06:13] LABS: BASOPHILS % (MANUAL) 2 % (0-1); EOSINOPHILS % (MANUAL) 0 % (0-8)
[2017-09-06] MEDS: Insulin Lispro Flexpen 300 UNIT/3 ML INSULN.PEN SUBCUT SCH ×4 (07:22→20:12)
--- NOTE | 2017-09-06 08:53 | PT PM DAY ---
Diagnosis : Right Lower Extremity Open Wound PM - Physical Therapy S: The patient reports no changes from his dressing this morning; however, he was told that Dr. Ann wants to take a look at his wound. O: Today's therapy consisted of the patient being brought downstairs to physical therapy in order for Dr. Ann to view the wound. The dressing was removed and the area was cleansed with wound cleanser and following consult with Dr. Ann it was redressed without removing the Cutimed Sorbic. Calamine lotion was reapplied along the periwound area followed by Ajith to help with moisture control, Kerlix, ABD pads, and Coban, all supplied by the physical therapy department. A: According to the consult with Dr. Ann, he will reinspect it again tomorrow and the surgical intervention following MRI consultation with Dr. Knox will be done. At this time Dr. Ann hopes he is just going to have to debride the area and that it will heal with conservative packing treatments. P: Continue seeing patient on a PRN basis. STAS
--- NOTE | 2017-09-06 09:12 | PT AM DAY ---
Diagnosis : Right Lower Extremity Open Wound AM - Physical Therapy S: The patient reports he was told Dr. Ann wants to inspect his open wound in his foot today to see if he will have to undergo surgery. O: Today's therapy consisted of the patient being placed in a wheelchair and being brought downstairs to the physical therapy department where his dressing was removed and cleansed with wound cleanser. At the time Dr. Ann inspected the wound area and decided that this afternoon the patient will undergo debridement of the wound area and requests and physical therapy resume wound care on Wednesday. Following that we did redress the patient's wound with all supplies provided by the physical therapy department including Kerlix, ABD pad, and Coban. A: The maceration has grown more significant around the wound area with no signs of fresh blood flow to the area. P: We will reevaluate the patient on Wednesday following surgery. STAS
[2017-09-06] MEDS: HYDROmorphone 2 MG/1 ML IVP PRN (11:54)
--- NOTE | 2017-09-06 12:03 | PT PM DAY ---
Diagnosis : Right Lower Extremity Wound PM - Physical Therapy S: The patient reports he underwent surgery yesterday for an I&D and is hoping to have pain medication given when his wound site is redressed. O: Nursing and the hospitalist were present at the time of dressing removal as well as redressing. The patient was given Dilaudid and the old bandage was removed which demonstrated 80% of sanguineous strike through. The wound now following surgery has 80% granulation tissue base and at its deepest depth from the dorsal aspect at 2.8 centimeters; however, the wound still communicates all the way to the distal end of the 5th [address] way from the dorsum to the plantar aspect. The area was packed with Iodoform followed by Calmoseptine impregnated gauze to prevent further maceration which is present 5-8 centimeters from the surgical base followed by ABD pads, Kerlix and Preston bandage. A: Please refer to the nursing notes for updated photos taken. The wound had no Pseudomonas smell and is having good blood flow at this time. The therapist is concerned with the patient and his family socially. The states that at this time they are homeless, living in the basement of her parent 's house and states that due to not having any insurance, when he is discharged , they will not be able to seek medical care for the wound. She states she would like to be present tomorrow for the dressing change so she can see what she needs to do when they are eventually discharged. P: We will let the finished goods planner know about any possible social work program coordinator that this family may quality for as well as continue changing the dressing one time per day unless we hear otherwise from Dr. Ann. STAS
--- NOTE | 2017-09-06 12:10 | PT PM DAY ---
Diagnosis : Right Lower Extremity Open Wound PM - Physical Therapy S: Prior to seeing the patient, the therapist was contacted by Dr. Ann and he wanted to be present at the time of treatment. The patient reports he would like at least 5 minutes of his Dilaudid before having the dressing and his would like to be present so she will know how to pack this at home, assuming that once he gets discharged, they will not be able to afford medical care for his condition. O: Today's therapy consisted of dressing removal after being placed on Dilaudid. The area was cleansed with wound cleanser and packed with Iodoform followed by Calamine lotion on 4X4s, ABD pads, Kerlix, and Preston bandage. The bandage that we removed demonstrated approximately 30% serosanguineous strike through. No noticeable odor was present. A: At this time Dr. Ann, the nursing staff, and the therapist are all very pleased with the results from the surgery. Dr. Ann had been contemplating having the patient go back in to surgery for further debridement; however, at this time it is still looking good. He would like to be present for tomorrow's dressing change in the morning. P: Continue seeing patient one time per day for dressing change. MTDD
--- NOTE | 2017-09-06 12:18 | ORTHO.PROG ---
Last Taken Vital Signs: Vital Signs - Last Taken Temperature 97.3 F 09/06/17 11:14 Pulse Rate 79 09/06/17 11:14 Respiratory Rate 20 09/06/17 11:14 Blood Pressure 152/74 09/06/17 11:14 Pulse Ox 94 09/06/17 11:14 Subjective: Patient notes he is doing well as far as pain for the foot Objective: Examination shows that the patient's swelling around the foot and ankle is going down. He still has venous stasis type changes and some mild brown reddish color in the upper leg and I think this is also going down a little bit. Looking at the patient's wound on his foot, the plantar aspect of the foot still a sinus tract but this seems to be good with manipulation is no drainage as well as the wound and incision on the dorsal aspect of the space between the fourth and fifth webspace. He has brisk refill tissues overall markedly improved. There is no active drainage or fluid with manipulation. Laboratory Results 09/04/17 09/06/17 09/06/17 Range/Units 04:46 04:40 04:40 WBC 9.85 (4.8-10.8) 10^3/uL RBC 4.84 (4.70-6.10) 10^6/uL Hgb 14.3 (14.0-18.0) g/dL Hct 42.9 (42.0-52.0) % MCV 88.6 (80-90) FL MCH 29.5 (27-31) PG MCHC 33.3 (33-37) g/dL RDW Std Deviation 44.8 (39-50) fL RDW Coeff of Sheeba 14.0 (11.5-14.5) % Plt Count 317 (140-350) 10*3/uL MPV 9.9 (7.4-12.2) FL Immature Gran % (Auto) [employer] Neut % (Auto) [employer] Lymph % (Auto) [employer] [place] % (Auto) [employer] Eos % (Auto) [employer] Baso % (Auto) [employer] Immature Gran # (Auto) [employer] Neut # (Auto) [employer] Lymph # (Auto) [employer] [place] # (Auto) [employer] Eos # (Auto) [employer] Baso # (Auto) [employer] Neutrophils % (Manual) 59 (50-80) % Band Neutrophils % 3 (0-10) % Lymphocytes % (Manual) 29 (10-50) % Monocytes % (Manual) 7 (0-12) % Eosinophils % (Manual) 0 (0-8) % Basophils % (Manual) 2 H (0-1) % Metamyelocytes % Not Reportable Myelocytes % Not Reportable Promyelocytes % Not Reportable Blast Cells Not Reportable WBC Morphology Comment Normal morphology (NORM) Plt Morphology Comment Normal morphology (NORM) RBC Morph Comment Normal morphology (NORM) Sodium 136 (135-145) meq/L Potassium 4.2 (3.8-5.2) meq/L Chloride 101 (98-112) meq/L Carbon Dioxide 28 (23-33) meq/L Anion Gap 7 (5-20) BUN 9 (7-22) mg/dL Creatinine 0.7 (0.70-1.50) mg/dL Estimated GFR > 60 (>60 ml/min/1.73m(2)) BUN/Creatinine Ratio 12.85 (6-20) Glucose 239 H (78-110) mg/dL Calculated Osmolality 288.0 (267-292) mOsm/kg Calcium 8.9 (8.7-10.7) mg/dL Hep Bs Antigen 0.06 (<1.0) Hepatitis C Antibody 0.02 (0-<0.90) Vital Signs (24 hrs) Temp Pulse Resp BP BP Pulse Ox 09/06/17 11:14 97.3 F 79 20 152/74 94 09/06/17 06:55 97.9 F 78 18 141/70 99 09/06/17 05:27 94 09/06/17 04:56 98.4 F 79 20 137/78 94 09/06/17 01:00 98.6 F 83 20 132/74 93 09/05/17 20:09 99.3 F 82 20 129/77 91 09/05/17 16:02 97.1 F 78 20 139/99 92 Assessment: Diabetic foot ulcer and abscess right foot Plan: Patient's wound care is going very well there is no odor and there is progressively less drainage each day appropriate for an open wound that is undergoing dressing changes. Swelling is continuing to decrease. Clinically the patient feels good. I suspect the patient will require some form of antibiotic treatment at the recommendation of infectious disease prior to going home. Patient will need to continue with wound care while he is here and then also when he goes home may be once a day with similar material that they are using here. Patient is not to utilize the silver impregnated dressings that he was using previously. The patient is discharged she will follow up in the office in about a week if not then I will follow him daily as well as on the floor.
[2017-09-06] MEDS: Ertapenem Inj 1 GM in Sodium Chloride 0.9% 100 ML IV SCH (16:30)
[2017-09-06] MEDS ORDERED: Insulin Glargine SoloStar Inj 100 UNIT/ML INSULN.PEN SUBCUT SCH (21:00)
[2017-09-07 05:57] VITALS: RESP 20
[2017-09-07] MEDS: HYDROcodone-APAP 5 MG -325 MG TABLET PO PRN ×3 (05:57→16:04)
[2017-09-07] MEDS: HEPARIN 5000 UNIT/1 ML SUBCUT SCH ×2 (06:02→12:45)
[2017-09-07] MEDS: Insulin Lispro Flexpen 300 UNIT/3 ML INSULN.PEN SUBCUT SCH ×3 (07:00→16:20)
[2017-09-07 11:11] VITALS: BP 154/97; TEMP 97.2; O2SAT 96
[2017-09-07] MEDS: HYDROmorphone 2 MG/1 ML IVP PRN (12:44)
--- NOTE | 2017-09-07 13:19 | DCSUMMARY ---
Hospitalization Summary Admit Date: 09/01/2017 Discharge Date: 09/07/17 Hospital Course: Discharge diagnoses 1. Right foot ulcer 2. Abscess right foot status post incision and drainage 3. Poorly controlled diabetes 4. History of multiple surgeries to the throat with hoarseness 5. 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 This is getting progressively worse. There was a question of intermittent fever. There was some swelling and redness of the distal aspect of the right leg. There was a foul-smelling discharge. Patient came into the ER culture was taken he was started on antibiotics and was admitted to the hospital. Was admitted by Dr. Knox please see his note. Patient was put on insulin in addition to IV antibiotics. Initially he was put on Zosyn and vancomycin. An MRI of the leg raised the possibility of an abscess. Patient was seen by Dr. Ann he took him to surgery where he had an incision and drainage of incompletely decompressed abscess. The growth from the culture of the wound showed Enterobacter and Streptococcus we switched him to the [facility]. I saw him later on during his hospital stay we continued with the antibiotics. We kept him with dressing changes. Dr. Ann looked at the wound and felt that the patient can continue IV antibiotic dressing changes as an outpatient. I did check on the wound the there is a pocket on the dorsal aspect of the right foot between the fourth and fifth toe. No discharge and the smell resolved. The swelling seemed to be also decreased we thought will continue the same plan we' ll discharge him on antibiotics and dressing changes. I did speak with the ID Dr. Jade and suggested to continue IV antibiotics for additional 5 days. Patient cannot afford medications so I spoke with the pharmacist and arranged for him to get samples of insulin and including Humalog and Lantus. Patient will do dressing changes at home and maybe coming every third day to have a dressing changes by the physical therapist here and have the wound inspected. I did speak with the patient and encouraged him to monitor his blood sugar and take his insulin to achieve a better control of his diabetes because that would help the healing process. Patient white count when he came in was 20,000 and later on when down to 9.8 on September 06. Discharge instruction Diet diabetic Activity as started Medications Current Medication(s) 3 Medication Instructions Recorded Confirmed Type Acetaminophen [Tylenol] 650 mg PO Q6H PRN tab 09/07/17 Rx Ertapenem Inj [INVanz Inj] 1 gm IV Q24H #5 vial 09/07/17 Rx HYDROcodone/APAP 5/325 Tab [[place] 1 tab PO Q4H PRN #24 tab 09/07/17 Rx 5/325 Tab] Insulin Glargine SoloStar Inj 18 unit SUBCUT BEDTIME #1 09/07/17 Rx [Lantus SoloStar Inj] insuln.pen Insulin Lispro Flexpen Inj 0 - 16 unit SUBCUT AC HS #1 09/07/17 Rx [HumaLOG Flexpen Inj] insuln.pen Follow-up with Dr. Ann next week, with PT for dressing changes, primary care 1-2 weeks Condition at discharge stable discharge Exam - Vitals Vital Signs: Vital Signs Temperature 97.2 F Temperature Source Temporal Artery Scan Pulse Rate [Apical] 78 Pulse Rate [Pulse Oximeter] 74 Pulse Rate 98 Respiratory Rate 20 Blood Pressure [Right Arm] 154/97 Blood Pressure [Left Arm] 158/92 Blood Pressure [Left Radial 128/77 Artery] Blood Pressure 157/85 Pulse Ox 96 Oxygen Flow Rate 1 Oxygen Delivery Method Room Air Height 6 ft 5 in Weight 339 lb 3.2 oz - General General Appearance: No Acute Distress, Cooperative, Obese - Head Head Exam: Normal Inspection, Atraumatic - Eye Eye Exam: POSITIVE: Normal Appearance - ENT ENT Exam: POSITIVE: Normal Exam - Neck Neck Exam: Normal Inspection - Respiratory Respiratory Exam: POSITIVE: Clear to Auscultation - Bilaterally - Cardiovascular Cardiovascular Exam: POSITIVE: RRR - GI/Abdominal GI/Abdominal Exam: POSITIVE: Normal Bowel Sounds, Non Tender, Non Distended, Soft, No Organomegaly - Rectal Rectal Exam: POSITIVE: Deferred - External Exam: POSITIVE: Deferred - Extremities Additional Extremities Exam Details: The swelling in his foot seemed to be improved there is no redness in the leg chronic dermatitic changes noted. There is no foul-smelling discharge like he had initially. There is an ulcer at the plantar aspect of the right foot that communicates with the pocket which was result of the debridement between the fourth and fifth toe. I think the wound looks better. - Back Back Exam: POSITIVE: Normal Inspection - Neurological Neurological Exam: POSITIVE: Alert, Oriented x 3, CN II-XII Intact, No Facial Droop, Speech Intact / Clear, Moves All Extremities Equally - Psychiatric Psychiatric Exam: POSITIVE: Normal Affect Patient Problems - Patient Problem List (1) Diabetic foot ulcer Current Visit: Yes Status: Acute Code(s): E11.621 - Type 2 diabetes mellitus with foot ulcer; L97.509 - Non-pressure chronic ulcer of other part of unspecified foot with unspecified severity Category: Medical (2) Cellulitis Current Visit: Yes Status: Acute Code(s): L03.90 - Cellulitis, unspecified Category: Medical (3) Diabetes 1.5, managed as type 2 Current Visit: Yes Status: Acute Code(s): E10.9 - Type 1 diabetes mellitus without complications Category: Medical
[2017-09-07] MEDS: Ertapenem Inj 1 GM in Sodium Chloride 0.9% 100 ML IV SCH ×2 (13:57→16:21)
--- NOTE | 2017-09-07 14:22 | PT AM DAY ---
Diagnosis : Right Lower Extremity Wound AM - Physical Therapy S: The patient reports he feels like his foot is healing well and he is hoping to get discharged soon. O: The patient was brought downstairs to therapy in the wound room. His dressing was removed so Dr. Melgar and Dr. Ann could inspect the wound. The area was cleansed with wound cleanser. The wound was then packed with Iodoform followed by Calamine impregnated gauze to help with maceration, ABD pads, Kerlix, and Coban. All supplies were provided by the physical therapy department. A: The wound continues to have serosanguineous drainage that has decreased down to a moderate amount. P: Continue seeing patient BID during the week and one time per day over the weekend until discharge. ALLIED
--- NOTE | 2017-09-07 16:59 | PT.PROG ---
Progress Note Progress Note: S. The patient reports he feels like his foot is healing well. O. His dressing was removed so Dr. Melgar could inspect the wound. The area was cleansed with wound cleanser. The wound was then packed with Iodoform followed by Calamine impregnated gauze to help with maceration, ABD pads, Kerlix , and Coban. A. The wound continues to have serosanguineous drainage that has decreased down to a moderate amount. P. Continue seeing patient BID during the week and one time per day over the weekend until discharge.
== END 2017-09-07 17:03 | disposition home or self-care (01) | DRG 638 ==
LOC: ER 17:40 → MED/SURG 20:50 → OPS 09-03 12:34 → MED/SURG 09-03 15:48
PROVIDERS: ADMIT Internal Medicine; ATTEND Internal Medicine

== ENCOUNTER 2017-10-13 15:38 | Inpatient (IN) ==
[~2017-10-13 15:38] MED LIST: LIDOCAINE W/ SODIUM BICARB 0.5 ML SYR SUBD ONE
[2017-10-13] MEDS ORDERED: Lactated Ringers 1,000 ML PRIMARY IV ONE (16:39)
[2017-10-13] MEDS ORDERED: LIDOCAINE W/ SODIUM BICARB 0.5 ML SYR ONE ×2 (16:39→17:52)
[2017-10-13] MEDS: Lactated Ringers 1,000 ML PRIMARY IV SCH ×2 (17:00→21:27)
[2017-10-13] MEDS ORDERED: IPRATROPIUM/ALBUTEROL SULFATE 3 ML NEB NEB ONE (17:03)
[2017-10-13 17:10] LABS: Hematocrit [HCT] 43.9 % (42.0-52.0); Hemoglobin [HGB] 14.9 g/dL (14.0-18.0); MEAN CORPUSCULAR HEMOGLOBIN 28.4 PG (27-31); MEAN CORPUSCULAR HGB CONC 33.9 g/dL (33-37); MEAN CORPUSCULAR VOLUME 83.6 FL (80-90); MEAN PLATELET VOLUME 9.3 FL (7.4-12.2); RED BLOOD COUNT 5.25 10^6/uL (4.70-6.10)
[2017-10-13] MEDS ORDERED: Sodium Chloride 0.9% 100 ML IV ONE (17:16)
[2017-10-13] MEDS ORDERED: AMPICILLIN/SULBACTAM 3 GM VIAL IV ONE (17:16)
[2017-10-13 17:19] LABS: BLOOD UREA NITROGEN 15 mg/dL (7-22); BUN/CREATININE RATIO 18.75 (6-20); SERUM ALBUMIN 3.9 g/dL (3.5-4.8)
[2017-10-13] MEDS ORDERED: Sodium Chloride 0.9% vial 20 ML ONE (17:22)
[2017-10-13] MEDS ORDERED: BACITRACIN 50,000 UNIT VIAL IRRIG ONE (17:22)
[2017-10-13] MEDS ORDERED: fentaNYL Inj 250 MCG/5 ML VIAL ONE (17:27)
[2017-10-13] MEDS ORDERED: MEPIVACAINE HCL/PF 20 MG/1 ML ONE (17:27)
[2017-10-13] MEDS ORDERED: BUPIVACAINE 0.5% W/EPI MPF -30 ML VIAL IV ONE (17:28)
[2017-10-13] MEDS ORDERED: MIDAZOLAM 5 MG/1 ML ONE (17:28)
[2017-10-13 17:34] LABS: BAND NEUTROPHILS % 0 % (0-10); BASOPHILS % (MANUAL) 0 % (0-1); EOSINOPHILS % (MANUAL) 0 % (0-8); METAMYELOCYTES % 0 %; MONOCYTES % (MANUAL) 2 % (0-12); MYELOCYTES % 0 %; NEUTROPHILS % (MANUAL) 83 % (50-80); PLATELET MORPHOLOGY COMMENT NORMAL MORPHOLOGY (NORM); PROMYELOCYTES % 0 %; RBC MORPHOLOGY COMMENT NORMAL MORPHOLOGY (NORM); WBC MORPHOLOGY COMMENT NORMAL MORPHOLOGY (NORM)
[2017-10-13] MEDS ORDERED: PROPOFOL 10 MG/1 ML (200 MG/20 ML) VIAL IV ONE (17:35)
[2017-10-13] MEDS ORDERED: LIDOCAINE MPF 2% - 5 ML (20 MG/1 ML) ONE (17:35)
[2017-10-13] MEDS ORDERED: KETAMINE 100 MG/1 ML - 5 ML ONE (17:35)
[2017-10-13] MEDS ORDERED: GLYCOPYRROLATE 0.2 MG/1 ML VIAL ONE (18:18)
[2017-10-13] MEDS ORDERED: Ampicillin/Sulbactam Inj 3 GM in Sodium Chloride 0.9% 100 ML IV SCH (19:15)
--- NOTE | 2017-10-13 20:14 | CRNA.PROGR ---
Anesthesia Recovery Phase I - Post Anesthesia Evaluation Patient's Condition on Arrival in Phase I: Stable Patient's Condition on Arrival in Phase II: Stable Pain Level: 0
--- NOTE | 2017-10-13 20:14 | CRNA.PROGR ---
Post Anesthesia Phase II - Post Anesthesia Phase II Patient Stable and Discharged To: Med/Surg Care Assumed By Surgeon: Gurwinder Ann MD Temperature: 100.2 F Pulse Rate: 96 Respiratory Rate: 19 Blood Pressure: 135/79 Pulse Ox: 93 Total Kai Score at Discharge: 9 Post Anesthesia Discharge Criteria Met: Yes
--- NOTE | 2017-10-13 20:14 | CRNA.PROGR ---
Anesthesia Time - - Start date: 10/13/17 End date: 10/13/17 - Procedure/Recovery Time Anesthesia : Time In: 18:23 Anesthesia : Time Out: 19:53 Anesthesia : Total Time: 90 - Block Time PreOp Block : Time In: 17:40 PreOp Block : Time Out: 18:05 PreOp Block : Total Time: 25 - Total Anesthesia Time Total Anesthesia Time (minutes): 115 - Other Weight: 147.418 kg Height: 6 ft 5 in Body Mass Index (BMI): 38.5 Physical Status: P3 Anesthesia Type: Popliteal Fossa Block (Glma primary anesthetic.), General Anesthesia : LMA
--- NOTE | 2017-10-13 20:17 | CRNA.PROCE ---
Nerve Block Documentation - - Safety Measures: Time Out Taken, Site Verified - - Type of Nerve Block Used: Right Popliteal Fossa Block Position for Nerve Block: Prone Moniters Used During Block: SPO2, NIBP Oxygen Supplemented: Yes Sedation Used - Enter Amount in Comment Field [ANES.SEDAT]: Midazolam (mg): Yes (1.2), Fentanyl (mcg): Yes (100) Skin Prep Used: ChloroPrep (times4) Technique: Nerve Stimulator Nerve Block Needle Used: 80 mm ProBlk II Stimulation Hz: 1 Stimulation Staring mA: 2.0 Stimulation Ending mA: 0.6 Local Anesthetic - Enter Amt in Comment Field [ANES.LOCNB]: 0.5 % Bupivicaine with Epinephrine 1:200,000 (mL): Yes (25 ml in 1.5 ml incrememts), 2 % Mepivacaine (mL): Yes (20 ml in 1.5 ml increments.) - - PreOp Block : Time In: 17:40 PreOp Block : Time Out: 18:05 Anesthesia Time - Block Time PreOp Block : Time In: 17:40 PreOp Block : Time Out: 18:05 - Other Weight: 147.418 kg Height: 6 ft 5 in Body Mass Index (BMI): 38.5
--- NOTE | 2017-10-13 20:22 | CRNA.PROGR ---
Anesthesia Time - - Start date: 10/13/17 End date: 10/13/17 - Procedure/Recovery Time Anesthesia : Time In: 18:23 Anesthesia : Time Out: 19:53 Anesthesia : Total Time: 90 - Total Anesthesia Time Total Anesthesia Time (minutes): 90 - Other Weight: 147.418 kg Height: 6 ft 5 in Body Mass Index (BMI): 38.5 Physical Status: P3 Anesthesia Type: General Anesthesia : LMA
[2017-10-13] MEDS ORDERED: ONDANSETRON 4 MG/2 ML VIAL IVP PRN (20:37)
[2017-10-13] MEDS ORDERED: Ondansetron ODT Tab 8 MG TAB PO PRN (20:37)
[2017-10-13] MEDS ORDERED: diphenhydrAMINE 25 MG CAPSULE PO PRN (20:37)
[2017-10-13] MEDS ORDERED: IBUPROFEN 400 MG TABLET PO PRN (20:37)
[2017-10-13] MEDS ORDERED: BISACODYL 5 MG TABLET PO PRN (20:37)
[2017-10-13] MEDS ORDERED: HYDROmorphone 2 MG/1 ML IVP PRN (20:37)
[2017-10-13] MEDS ORDERED: BISACODYL 10 MG SUPPOSITORY RECTAL PRN (20:37)
[2017-10-13] MEDS ORDERED: Prochlorperazine Tab 10 MG TAB PO PRN (20:37)
[2017-10-13] MEDS ORDERED: CALCIUM CARBONATE 500 MG (TUMS) CHEWABLE TABLET PO PRN (20:37)
[2017-10-13] MEDS ORDERED: MAG HYDROX/AL HYDROX/SIMETH 30 ML SUSP PO PRN (20:37)
[2017-10-13] MEDS ORDERED: ACETAMINOPHEN 325 MG TABLET PO PRN (20:37)
[2017-10-13] MEDS ORDERED: Acetaminophen 1000mg Inj 1,000 MG/100 ML VIAL IV PRN (21:01)
[2017-10-13] MEDS ORDERED: KETOROLAC 30 MG/1 ML VIAL IVP PRN (21:03)
[2017-10-13] MEDS: DOCUSATE 100 MG CAPSULE PO SCH (21:26)
[2017-10-13] MEDS ORDERED: DEXTROSE 50%-WATER SYRINGE 50 ML SYRINGE IVP PRN (21:40)
[2017-10-13] MEDS ORDERED: DEXTROSE 31 GM GEL PO PRN (21:40)
[2017-10-13] MEDS ORDERED: Insulin Sliding Scale Protocol SUBCUT PRN (21:40)
[2017-10-13] MEDS ORDERED: Glucagon Inj Vial 1 MG/ML VIAL IM PRN (21:40)
[2017-10-13] MEDS ORDERED: Ertapenem Inj 1 GM in Sodium Chloride 0.9% 100 ML IV SCH (21:45)
--- NOTE | 2017-10-13 22:22 | PDOC ---
HPI - History of Present Illness Date of Service: 10/13/17 Time of Service: 22:14 Chief Complaint: right foot infection History of Present Illness: This is a 42 YO male with DMII, smoker, and recently diagnosed right foot abscess. He was seen in August in the hospital, and had an I and D for the abscess, along with IV antibiotics. The plan at the time of discharge in August was for the patient to continue to do outpatient wound therapy and another dose of IV antibiotics. He finished his antibiotic infusions but because of no insurance was refused the chance to do therapy. The patient's follow the instructions of the therapists on the inpatient side and continue to do wound care for the abscess and infection. In terms of the patient's diabetes, he has had significant problems with several oral medications including metformin, Actos, and sulfonylureas. He has not done well with insulin and actually has behavioral disturbances as well as significant weight gain on them. The patient reportedly has lost over 200 pounds over the past several years, and his manage diabetes mostly with diet. They did not have primary care follow-up leaving the hospital in August, and a cousin and her lack of insurance at the time, felt that it would be very difficult to establish with a primary care physician in the [facility] area. The patient was reportedly doing very well in terms of his healing of his right foot and the abscess and postoperative wound. He started driving about a week ago or so and was picking up somebody in [place] and apparently a week ago the wound started getting worse and started breaking down. He had fevers when he was seen in the clinic today and it was advised that he have another incision and drainage and expiration. X -ray was positive for osteomyelitis. It is not clear how proximal the osteomyelitis is an MRI scan is planned for tomorrow. I was asked to help with the diabetes and antibiotics. He had Enterobacter and a strep species on prior cultures in August 2017 so I will resume Invanz. The patient has a history of soft tissue infections including a postoperative back infection after back surgery, and may have had an MRSA infection at that time although that was remote. He has not had any nasal screening for MRSA at this point. I will note that the patient and his were seen by Dr. Ann throughout for reevaluation of the wound and it was recommended on 10/06/2017 to proceed with surgery and at that time the patient did not want to proceed with surgery. He does continue to smoke despite advice to quit. Further in terms of the diabetes, the patient stopped taking the insulin prescribed at the time of discharge. Again, the patient's stated that the patient's had difficulty with insulin in the past because of aggressive behaviors and significant weight gain after the use of insulin. Past Medical History Medical History: 1. Diabetes mellitus type II, poorly controlled with elevated hemoglobin A1c. 2. Diabetic foot abscess/now probable osteomyelitis of the fourth and fifth digits, right foot. 3. Tobacco abuse Surgical History: Diabetic foot ulcer, back surgery Pertinent Family History: Patient states that his parents do not have diabetes Past Social History: , current smoker, does not drink alcohol. Works with computers. Has healthy children. Lives in [place], [place]. Tobacco Use: Current Every Day Smoker In the Past 12 Months, Have Used or Abuse Any of the Following Substance: None Alcohol Use: None Medication / Allergies Home Medications: Home Medications 3 Medication Instructions Recorded Confirmed Type HYDROcodone/APAP 5/325 Tab [[place] 1 tab PO Q4H PRN #24 tab 09/07/17 10/13/17 Rx 5/325 Tab] gabapentin 100 mg capsule 100 mg PO QHS #60 cap 10/06/17 10/13/17 Rx Allergies/Adverse Reactions: Allergies 3 Allergy/AdvReac Type Severity Reaction Status Date / Time No Known Allergies Allergy Verified 10/13/17 20:47 Review of Systems - Constitutional Constitutional: REPORTS: Weight Loss (Lost over 200 pounds in the last several years), Fever / Chills (Had fever in the clinic today) - Respiratory Respiratory: REPORTS: Negative System Review - Cardiovascular Cardiovascular: REPORTS: Negative System Review - Gastrointestinal Gastrointestinal / Abdominal: REPORTS: Negative System Review - Genitourinary Genitourinary: REPORTS: Negative System Review - Musculoskeletal Musculoskeletal: REPORTS: Other (Plantar wound between fourth and fifth webspace that did not completely heal present since August of this year), See HPI Exam - Vitals Vital Signs: Vital Signs Temperature 98.2 F Temperature Source Temporal Artery Scan Pulse Rate [Apical] 90 Pulse Rate [Pulse Oximeter] 106 Pulse Rate 98 Respiratory Rate 20 Blood Pressure [Left Arm] 110/71 Blood Pressure 136/82 Pulse Ox 90 Oxygen Flow Rate 3 Oxygen Delivery Method CPAP (Home Unit) Height 6 ft 5 in Weight 325 lb - General General Appearance: No Acute Distress, Cooperative - Head Head Exam: Normal Inspection, Normocephalic, Atraumatic - Eye Eye Exam: POSITIVE: No Scleral Icterus - ENT ENT Exam: POSITIVE: Mucous Membranes Moist - Neck Neck Exam: Normal Inspection, No Tenderness, No Lymphadenopathy, No Thyromegaly - Respiratory Respiratory Exam: POSITIVE: Clear to Auscultation - Bilaterally, Breathing Non Labored - Cardiovascular Cardiovascular Exam: POSITIVE: RRR, No Murmur, No Clicks, No Gallops, No Rubs, No JVD - GI/Abdominal GI/Abdominal Exam: POSITIVE: Normal Bowel Sounds, Non Tender, Non Distended, Soft - Rectal Rectal Exam: POSITIVE: Deferred - External Exam: POSITIVE: Deferred Exam: POSITIVE: Deferred - Extremities Extremities Exam: POSITIVE: No Clubbing Present, No Edema Present, No Cyanosis Present Additional Extremities Exam Details: Right lower extremity is dressed, dressing is clean, dry, intact. - Neurological Neurological Exam: POSITIVE: Alert, Oriented x 3, No Facial Droop, Speech Intact / Clear - Psychiatric Psychiatric Exam: POSITIVE: Normal Affect, Normal Mood Results - Labs CBC and BMP: 10/13/17 16:55 10/13/17 16:55 Additional Lab Results: Laboratory Results 10/13/17 10/13/17 10/13/17 Range/Units 16:55 16:55 16:55 WBC 17.23 H (4.8-10.8) 10^3/uL RBC 5.25 (4.70-6.10) 10^6/uL Hgb 14.9 (14.0-18.0) g/dL Hct 43.9 (42.0-52.0) % MCV 83.6 (80-90) FL MCH 28.4 (27-31) PG MCHC 33.9 (33-37) g/dL RDW Std Deviation 43.9 (39-50) fL RDW Coeff of Sheeba 14.4 (11.5-14.5) % Plt Count 312 (140-350) 10*3/uL MPV 9.3 (7.4-12.2) FL Neutrophils % (Manual) 83 H (50-80) % Band Neutrophils % 0 (0-10) % Lymphocytes % (Manual) 15 (10-50) % Monocytes % (Manual) 2 (0-12) % Eosinophils % (Manual) 0 (0-8) % Basophils % (Manual) 0 (0-1) % Metamyelocytes % 0 % Myelocytes % 0 % Promyelocytes % 0 % Blast Cells 0 (0-1) % WBC Morphology Comment Normal morphology (NORM) Plt Morphology Comment Normal morphology (NORM) RBC Morph Comment Normal morphology (NORM) ESR 72 H (0-15) MM/HR Sodium 131 L (135-145) meq/L Potassium 4.2 (3.8-5.2) meq/L Chloride 96 L (98-112) meq/L Carbon Dioxide 22 L (23-33) meq/L Anion Gap 13 (5-20) BUN 15 (7-22) mg/dL Creatinine 0.8 (0.70-1.50) mg/dL Estimated GFR > 60 (>60 ml/min/1.73m(2)) BUN/Creatinine Ratio 18.75 (6-20) Glucose 261 H (78-110) mg/dL Calculated Osmolality 281.0 (267-292) mOsm/kg Calcium 9.0 (8.7-10.7) mg/dL Total Bilirubin 0.7 (0.3-1.2) mg/dL AST 11 L (21-57) IU/L ALT 21 (21-72) IU/L Alkaline Phosphatase 71 (38-126) IU/L C-Reactive Protein (0.0-0.9) mg/dL Total Protein 8.4 H (6.1-8.0) g/dL Albumin 3.9 (3.5-4.8) g/dL Globulin 4.5 H (2.50-4.10) g/dL Albumin/Globulin Ratio 0.80 L (1.3-2.0) mg/g 10/13/17 Range/Units 16:55 WBC (4.8-10.8) 10^3/uL RBC (4.70-6.10) 10^6/uL Hgb (14.0-18.0) g/dL Hct (42.0-52.0) % MCV (80-90) FL MCH (27-31) PG MCHC (33-37) g/dL RDW Std Deviation (39-50) fL RDW Coeff of Sheeba (11.5-14.5) % Plt Count (140-350) 10*3/uL MPV (7.4-12.2) FL Neutrophils % (Manual) (50-80) % Band Neutrophils % (0-10) % Lymphocytes % (Manual) (10-50) % Monocytes % (Manual) (0-12) % Eosinophils % (Manual) (0-8) % Basophils % (Manual) (0-1) % Metamyelocytes % % Myelocytes % % Promyelocytes % % Blast Cells (0-1) % WBC Morphology Comment (NORM) Plt Morphology Comment (NORM) RBC Morph Comment (NORM) ESR (0-15) MM/HR Sodium (135-145) meq/L Potassium (3.8-5.2) meq/L Chloride (98-112) meq/L Carbon Dioxide (23-33) meq/L Anion Gap (5-20) BUN (7-22) mg/dL Creatinine (0.70-1.50) mg/dL Estimated GFR (>60 ml/min/1.73m(2)) BUN/Creatinine Ratio (6-20) Glucose (78-110) mg/dL Calculated Osmolality (267-292) mOsm/kg Calcium (8.7-10.7) mg/dL Total Bilirubin (0.3-1.2) mg/dL AST (21-57) IU/L ALT (21-72) IU/L Alkaline Phosphatase (38-126) IU/L C-Reactive Protein 20.8 H (0.0-0.9) mg/dL Total Protein (6.1-8.0) g/dL Albumin (3.5-4.8) g/dL Globulin (2.50-4.10) g/dL Albumin/Globulin Ratio (1.3-2.0) mg/g - Imaging Status: Image Reviewed by Me (Foot x-ray from today shows obliteration of bone tissue on fourth and fifth toes of the right foot consistent with osteomyelitis. ) Assessment and Plan - Patient Problems (1) Osteomyelitis Current Visit: Yes Status: Acute Code(s): M86.9 - Osteomyelitis, unspecified Qualifiers: Osteomyelitis type: other acute Osteomyelitis location: foot Laterality: right Qualified Code(s): M86.171 - Other acute osteomyelitis, right ankle and foot (2) Diabetes mellitus type II, uncontrolled Current Visit: Yes Status: Acute Code(s): E11.65 - Type 2 diabetes mellitus with hyperglycemia Qualifiers: Diabetes mellitus residential insulin use: without termite control servicer use Diabetes mellitus complication status: with skin complications Diabetes mellitus complication detail: with foot ulcer Qualified Code(s): E11.621 - Type 2 diabetes mellitus with foot ulcer; E11.65 - Type 2 diabetes mellitus with hyperglycemia; L97.509 - Non-pressure chronic ulcer of other part of unspecified foot with unspecified severity (3) Tobacco abuse Current Visit: Yes Status: Acute Code(s): Z72.0 - Tobacco use - Assessment / Plan Additional Assessment/Plan Details: At this time I'll go ahead and change antibiotics from Unasyn to Invanz. In addition, we'll screen for MRSA. Gram stain shows gram-positive cocci and gram- positive rods. Full culture still pending. This may make sense as well as it was a purulent wound. I agree with MRI scan. We need to know if this osteomyelitis is more proximal to try and determine potential level of amputation which will need to be done given osteomyelitis most likely. Given the patient's diabetes had think he warrants vascular workup. We may need to consider referral to a center more equipped for vascular management. Patient must absolutely quit smoking. In terms of the diabetes, I think we can work with the patient to perhaps start oral medications. He has not had any of the novel oral anti-diabetes medications and they may be helpful in this patient's situation. Given his significant weight gain on insulin in the past, it's unlikely he will continue to use this. His states that they have been through the system for some time over the last 11 years, and have not had success with metformin, glipizide , Actos, or insulin therapies. Check for thyroid function in the morning as patients with diabetes often have dysfunctional thyroid glands. Smoking cessation education. I spoke with the patient and his , and they both agree that they would like to get the MRI scan and discuss care further in the morning based on those MRI results. If understood clearly and my discussion that is likely that the patient would need amputation. She plans to defer that decision to her .
[2017-10-14] MEDS ORDERED: Vancomycin-PHA to Dose IV SCH (00:45)
[2017-10-14] MEDS ORDERED: Ampicillin/Sulbactam Inj 3 GM in Sodium Chloride 0.9% 100 ML IV SCH (01:00)
[2017-10-14 05:06] LABS: Hematocrit [HCT] 40.7 % (42.0-52.0); Hemoglobin [HGB] 13.5 g/dL (14.0-18.0); MEAN CORPUSCULAR HEMOGLOBIN 28.3 PG (27-31); MEAN CORPUSCULAR HGB CONC 33.2 g/dL (33-37); MEAN CORPUSCULAR VOLUME 85.3 FL (80-90); MEAN PLATELET VOLUME 9.8 FL (7.4-12.2); RED BLOOD COUNT 4.77 10^6/uL (4.70-6.10)
[2017-10-14 05:52] LABS: BLOOD UREA NITROGEN 20 mg/dL (7-22); BUN/CREATININE RATIO 18.18 (6-20)
[2017-10-14 05:53] LABS: HEMOGLOBIN A1C 10.22 % (4.2-6.0)
--- NOTE | 2017-10-14 06:43 | DI ---
XR FOOT COMPLETE MIN 3VW,10/13/2017 4:09 PM: Clinical History: Right foot infection. Previous Exam: September 02, 2017 Findings: 3 views of the right foot are obtained, and demonstrate interval arose in of the distal right fourth and fifth metatarsals and the proximal fourth and portions of the proximal fifth phalanges. There is a moth-eaten and erosive appearance. There is prominence of the surrounding soft tissues. Impression: Findings are consistent with an aggressive erosive osteomyelitis of the fourth and fifth metatarsopha langeal joints with erosions of both the distal fourth and fifth metatarsals and the proximal fourth and fifth phalanges.
[2017-10-14] MEDS: ENOXAPARIN SODIUM 30 MG/0.3 ML SYRINGE SUBCUT SCH ×2 (09:36→20:25)
[2017-10-14] MEDS: DOCUSATE 100 MG CAPSULE PO SCH ×2 (09:37→20:26)
[2017-10-14] MEDS: Insulin Lispro Flexpen 300 UNIT/3 ML INSULN.PEN SUBCUT SCH ×3 (09:38→18:32)
--- NOTE | 2017-10-14 11:26 | CRNA.PROGR ---
Anesthesia Note - Progress Notes Anesthesia Progress Note: Post OP Anesthesia Note Pt is lying in bed comfortable. He has been able to tolerate a regular diet. He states that the Pop Fossa Block is just beginning to wear off. He denies any residual issues from the anesthetic. Current VS are stable. Vital Signs (Last 8 hours) Temp Pulse Resp BP BP Pulse Ox 10/14/17 11:01 98.3 F 91 19 133/73 91 10/14/17 06:37 97.7 F 74 19 128/82 99 10/14/17 04:41 97.5 F 68 20 105/63 99 10/14/17 04:37 99
[2017-10-14] MEDS ORDERED: sitaGLIPtin Tab 100 MG TAB PO ONE (12:18)
[2017-10-14] MEDS ORDERED: cefTRIAXone Inj 2 GM in Sodium Chloride 0.9% 100 ML IV SCH (14:00)
[2017-10-14] MEDS: HYDROcodone-APAP 10 MG-325 MG TABLET PO PRN ×2 (14:14→17:58)
--- NOTE | 2017-10-14 14:19 | PTI REPORT ---
Thank you for the referral of Pj Bhatti. He was seen on 10/14/17 for an inpatient evaluation secondary to a diabetic foot ulcer. SUBJECTIVE: The patient is a 42-year-old male with a diabetic foot ulcer that has been ongoing for approximately one month. He has precautions of partial weight- bearing and the patient states he tested positive for MRSA last night. The patient states he slipped last night when he was getting out of bed to use the bathroom. He states his wrap slipped and he landed backwards on the bed before getting up. The patient states this was due to his bandages. PAST MEDICAL HISTORY: Past medical history can be found in the patient's medical record. OBJECTIVE FINDINGS: Bed mobility: The patient is able to perform bed mobility with stand by assist. Ambulation: The patient was able to ambulate x75 feet with contact guard assist , standard walker, partial weight-bearing, and a step to gait pattern. The patient did demonstrate a self recovered loss of balance with left turn on the tile. The patient completed the 10 Meter walk test in 18 seconds. Strength: Strength is within functional limits. ASSESSMENT: The patient is a MODERATE fall risk due to weight-bearing status and leg bandages Problem List: Partial weight-bearing Co-morbidities Ulcer on foot Short-Term Goals: To be met by discharge from inpatient: Patient will be able to perform all ambulation and transfers independently with standard walker and partial weight-bearing. Patient will be able to safely ascend and descent a flight of stairs. Long-Term Goals: To be met following discharge from inpatient: Patient will be seen by outpatient physical therapy. TREATMENT PLAN: Patient will be seen B.I.D during the week and one time per day over the weekend as an inpatient for gait and stair training. INITIAL TREATMENT: Treatment today consisted of the initial evaluation activities only. Dictated by: WAN Arredondo Supervised by: INGRID Morales
--- NOTE | 2017-10-14 15:00 | ORTHO.OP ---
- - -: See Dictated Operative Report Procedure Codes - Miscellaneous Procedures Primary Miscellaneous Procedure Codes: Other CPT Code(s) (cpt 30048)
--- NOTE | 2017-10-14 15:06 | ORTHO.PROG ---
Last Taken Vital Signs: Vital Signs - Last Taken Temperature 98.3 F 10/14/17 11:01 Pulse Rate 91 10/14/17 11:01 Respiratory Rate 19 10/14/17 11:01 Blood Pressure 133/73 10/14/17 11:01 Pulse Ox 91 10/14/17 11:01 Subjective: Patient notes the pain is reasonably well-controlled on the right foot today able to sleep through the evening. Notes no fevers or chills. Objective: Patient was splint in place no active drainage or issues with the splint or dressing at the current time. He can move the toes limited motion on the lesser toes particularly the fourth and fifth. Brisk refill Laboratory Results 10/13/17 10/13/17 10/13/17 Range/Units 16:55 16:55 16:55 WBC 17.23 H (4.8-10.8) 10^3/uL RBC 5.25 (4.70-6.10) 10^6/uL Hgb 14.9 (14.0-18.0) g/dL Hct 43.9 (42.0-52.0) % MCV 83.6 (80-90) FL MCH 28.4 (27-31) PG MCHC 33.9 (33-37) g/dL RDW Std Deviation 43.9 (39-50) fL RDW Coeff of Sheeba 14.4 (11.5-14.5) % Plt Count 312 (140-350) 10*3/uL MPV 9.3 (7.4-12.2) FL Neutrophils % (Manual) 83 H (50-80) % Band Neutrophils % 0 (0-10) % Lymphocytes % (Manual) 15 (10-50) % Monocytes % (Manual) 2 (0-12) % Eosinophils % (Manual) 0 (0-8) % Basophils % (Manual) 0 (0-1) % Metamyelocytes % 0 % Myelocytes % 0 % Promyelocytes % 0 % Blast Cells 0 (0-1) % WBC Morphology Comment Normal morphology (NORM) Plt Morphology Comment Normal morphology (NORM) RBC Morph Comment Normal morphology (NORM) ESR 72 H (0-15) MM/HR Sodium 131 L (135-145) meq/L Potassium 4.2 (3.8-5.2) meq/L Chloride 96 L (98-112) meq/L Carbon Dioxide 22 L (23-33) meq/L Anion Gap 13 (5-20) BUN 15 (7-22) mg/dL Creatinine 0.8 (0.70-1.50) mg/dL Estimated GFR > 60 (>60 ml/min/1.73m(2)) BUN/Creatinine Ratio 18.75 (6-20) Glucose 261 H (78-110) mg/dL Mean Blood Glucose mg/dL Hemoglobin A1c (4.2-6.0) % Calculated Osmolality 281.0 (267-292) mOsm/kg Calcium 9.0 (8.7-10.7) mg/dL Total Bilirubin 0.7 (0.3-1.2) mg/dL AST 11 L (21-57) IU/L ALT 21 (21-72) IU/L Alkaline Phosphatase 71 (38-126) IU/L C-Reactive Protein (0.0-0.9) mg/dL Total Protein 8.4 H (6.1-8.0) g/dL Albumin 3.9 (3.5-4.8) g/dL Globulin 4.5 H (2.50-4.10) g/dL Albumin/Globulin Ratio 0.80 L (1.3-2.0) mg/g TSH (0.2700-4.2000) uIU/mL Free T4 (0.93-1.71) ng/dL 10/13/17 10/14/17 10/14/17 Range/Units 16:55 04:36 04:36 WBC 13.11 H (4.8-10.8) 10^3/uL RBC 4.77 (4.70-6.10) 10^6/uL Hgb 13.5 L (14.0-18.0) g/dL Hct 40.7 L (42.0-52.0) % MCV 85.3 (80-90) FL MCH 28.3 (27-31) PG MCHC 33.2 (33-37) g/dL RDW Std Deviation 46.1 (39-50) fL RDW Coeff of Sheeba 14.9 H (11.5-14.5) % Plt Count 253 (140-350) 10*3/uL MPV 9.8 (7.4-12.2) FL Neutrophils % (Manual) (50-80) % Band Neutrophils % (0-10) % Lymphocytes % (Manual) (10-50) % Monocytes % (Manual) (0-12) % Eosinophils % (Manual) (0-8) % Basophils % (Manual) (0-1) % Metamyelocytes % % Myelocytes % % Promyelocytes % % Blast Cells (0-1) % WBC Morphology Comment (NORM) Plt Morphology Comment (NORM) RBC Morph Comment (NORM) ESR (0-15) MM/HR Sodium 132 L (135-145) meq/L Potassium 4.1 (3.8-5.2) meq/L Chloride 97 L (98-112) meq/L Carbon Dioxide 21 L (23-33) meq/L Anion Gap 14 (5-20) BUN 20 (7-22) mg/dL Creatinine 1.1 (0.70-1.50) mg/dL Estimated GFR > 60 (>60 ml/min/1.73m(2)) BUN/Creatinine Ratio 18.18 (6-20) Glucose 222 H (78-110) mg/dL Mean Blood Glucose mg/dL Hemoglobin A1c (4.2-6.0) % Calculated Osmolality 283.0 (267-292) mOsm/kg Calcium 8.4 L (8.7-10.7) mg/dL Total Bilirubin (0.3-1.2) mg/dL AST (21-57) IU/L ALT (21-72) IU/L Alkaline Phosphatase (38-126) IU/L C-Reactive Protein 20.8 H (0.0-0.9) mg/dL Total Protein (6.1-8.0) g/dL Albumin (3.5-4.8) g/dL Globulin (2.50-4.10) g/dL Albumin/Globulin Ratio (1.3-2.0) mg/g TSH (0.2700-4.2000) uIU/mL Free T4 (0.93-1.71) ng/dL 18 10/14/17 Range/Units 04:36 04:36 WBC (4.8-10.8) 10^3/uL RBC (4.70-6.10) 10^6/uL Hgb (14.0-18.0) g/dL Hct (42.0-52.0) % MCV (80-90) FL MCH (27-31) PG MCHC (33-37) g/dL RDW Std Deviation (39-50) fL RDW Coeff of Sheeba (11.5-14.5) % Plt Count (140-350) 10*3/uL MPV (7.4-12.2) FL Neutrophils % (Manual) (50-80) % Band Neutrophils % (0-10) % Lymphocytes % (Manual) (10-50) % Monocytes % (Manual) (0-12) % Eosinophils % (Manual) (0-8) % Basophils % (Manual) (0-1) % Metamyelocytes % % Myelocytes % % Promyelocytes % % Blast Cells (0-1) % WBC Morphology Comment (NORM) Plt Morphology Comment (NORM) RBC Morph Comment (NORM) ESR (0-15) MM/HR Sodium (135-145) meq/L Potassium (3.8-5.2) meq/L Chloride (98-112) meq/L Carbon Dioxide (23-33) meq/L Anion Gap (5-20) BUN (7-22) mg/dL Creatinine (0.70-1.50) mg/dL Estimated GFR (>60 ml/min/1.73m(2)) BUN/Creatinine Ratio (6-20) Glucose (78-110) mg/dL Mean Blood Glucose 254.326 mg/dL Hemoglobin A1c 10.22 H (4.2-6.0) % Calculated Osmolality (267-292) mOsm/kg Calcium (8.7-10.7) mg/dL Total Bilirubin (0.3-1.2) mg/dL AST (21-57) IU/L ALT (21-72) IU/L Alkaline Phosphatase (38-126) IU/L C-Reactive Protein (0.0-0.9) mg/dL Total Protein (6.1-8.0) g/dL Albumin (3.5-4.8) g/dL Globulin (2.50-4.10) g/dL Albumin/Globulin Ratio (1.3-2.0) mg/g TSH 1.09 (0.2700-4.2000) uIU/mL Free T4 2.06 H (0.93-1.71) ng/dL Vital Signs (24 hrs) Temp Pulse Pulse Pulse Resp BP BP 10/14/17 11:01 98.3 F 91 19 10/14/17 06:37 97.7 F 74 19 128/82 10/14/17 04:41 97.5 F 68 20 105/63 10/14/17 04:37 10/14/17 02:18 97.0 F 10/13/17 23:30 100.1 F H 96 20 109/59 10/13/17 22:30 99.2 F 100 20 111/67 10/13/17 21:30 98.2 F 106 H 20 110/71 10/13/17 21:00 98.9 F 100 20 116/69 10/13/17 20:38 90 20 10/13/17 20:30 98.7 F 90 20 127/78 10/13/17 20:26 98.4 F 98 20 136/82 10/13/17 20:19 98 21 125/80 10/13/17 20:15 96 22 136/78 10/13/17 20:14 100.2 F H 96 19 135/79 10/13/17 20:10 96 19 135/79 10/13/17 20:05 95 20 115/66 10/13/17 20:03 98.7 F 90 20 127/78 10/13/17 20:00 95 19 106/63 10/13/17 19:55 96 19 100/56 10/13/17 17:50 100.2 F H 90 16 101/52 10/13/17 17:25 98.9 F 114 H 18 142/84 10/13/17 17:05 114 H 18 BP Pulse Ox 10/14/17 11:01 133/73 91 10/14/17 06:37 99 10/14/17 04:41 99 10/14/17 04:37 99 10/14/17 02:18 10/13/17 23:30 97 10/13/17 22:30 91 10/13/17 21:30 90 10/13/17 21:00 94 10/13/17 20:38 10/13/17 20:30 94 10/13/17 20:26 95 10/13/17 20:19 96 10/13/17 20:15 96 10/13/17 20:14 93 10/13/17 20:10 93 10/13/17 20:05 96 10/13/17 20:03 94 10/13/17 20:00 96 10/13/17 19:55 95 10/13/17 17:50 95 10/13/17 17:25 91 10/13/17 17:05 91 Gram stain with gram-positive rods and gram-positive cocci MRSA nasal positive for MRSA Assessment: Diabetic foot ulcer on right with subsequent deep space infection osteomyelitis. Plan: Patient will continue with the IV antibiotics to include ceftriaxone and vancomycin. Question on whether patient was given a be started on ertapenem since that's what he was on previously and seemed to be effective but with the MRSA I believe he was switched to this combination. I would hold on any wound care today and tentatively plan on taking him back to the tomorrow for limited amputation of the fourth and fifth toe and cleaning up of the fourth and fifth metatarsals. We are going to get an MRI to make sure we don't see anything unusual involving other parts of the midfoot. Also discussed with the hospitalist in regard to her vascular status and we'll see about having a potential evaluation of his vascular status since hand-held machine unable to obtain significant DP pulse which may just be his anatomic variant but also had very weak posterior tib pulse. We'll await the results the MRI did discuss with the patient and his . DVT prophylaxis is noted with an oxaprozin and pneumatics. Pain control with oral and IV medication as needed
[2017-10-14 16:01] VITALS: RESP 20
[2017-10-14] MEDS: Lactated Ringers 1,000 ML PRIMARY IV SCH ×2 (18:31→18:32)
--- NOTE | 2017-10-14 19:26 | DI ---
MRI Lower Extremity WO Jose,10/14/2017 7:00 AM: Clinical History: Osteomyelitis of the right foot. Previous Exam: September 02, 2017 Findings: Multiplanar MR images are obtained through the right foot without contrast, and demonstrate bony dest ruction and increased marrow signal involving the distal fourth and fifth metatarsals as well as the proximal portions of the fourth and fifth proximal phalanges. There has been surgical gauze noted within the superior soft tissues of the right foot. There is some mild marrow edema involving the distal third metatarsal as well without extension into the tarsal bones. There is a complex fluid collection along the plantar soft tissues just inferior to the second mid me tatarsal. This measures 2.1 x 2.2 x 1.0 cm. Flexor tendons are unremarkable. The extensor tendons are also unremarkable. There is diffusely edema tous soft tissues within the lumbricalls and other surrounding musculature. Impression: Osteomyelitis of the distal fourth and fifth metatarsals and the proximal fourth and fifth proximal p halanges. There is mild increased marrow signal within the distal portion of the third metatarsal, which is con sistent with reactive marrow. Cannot completely rule out the possibility of osteomyelitis. Complex fluid collection along the plantar aspect of the second metatarsal neck measuring 2.1 x 2.2 x 1.0 cm area cannot rule out the possibility of an abscess.
--- NOTE | 2017-10-14 20:35 | PDOC(PROG) ---
Date and Time of Service: 10/14/2017, 2029 Interval History: No completes of chest pain, shortness breath, nausea or vomiting. Pain in foot is well controlled at this time. Dr. Ann and myself spoke extensively with the patient regarding his MRI results today, and I examined the patient a couple of times. In terms of his diabetes he is willing to do Januvia but does not want to do insulin because of his mood changes on the medication and because of his weight gain in the past. In terms of the infection, he is willing to consent to an amputation, vascular workup, and would be amenable to going to [place] for further evaluation. I spoke with infectious disease for help with antibiotics, and we reduced the Invanz to Rocephin along with vancomycin. Cultures are still pending. The patient would like to pursue possible transfer tomorrow. Objective : Data - Labs CBC and BMP: 10/14/17 04:36 10/14/17 04:36 Additional Lab Results: 10/13/17 10/13/17 10/14/17 16:55 16:55 04:36 ESR 72 H Hemoglobin A1c 10.22 H C-Reactive Protein 20.8 H TSH Free T4 10/14/17 04:36 ESR Hemoglobin A1c C-Reactive Protein TSH 1.09 Free T4 2.06 H - Imaging MRI Status: Image Reviewed by Me (I reviewed the images with orthopedics, we also discussed with radiology. The MRI suggests osteomyelitis in the fourth and fifth toes, there may be some soft tissue fluid collection although it's difficult to tell on the plantar aspect of this is infected or not.) Objective : Exam - General General Appearance: No Acute Distress, Cooperative Additional General Exam Details: Vital Signs - Last Taken Temperature 98.2 F 10/14/17 20:19 Pulse Rate 100 10/14/17 20:19 Respiratory Rate 20 10/14/17 20:19 Blood Pressure 104/70 10/14/17 20:19 Pulse Ox 94 10/14/17 20:19 - Eye Eye Exam: No Scleral Icterus - ENT ENT Exam: Mucous Membranes Moist - Respiratory Respiratory Exam: Clear to Auscultation - Bilaterally, Breathing Non Labored - Cardiovascular Cardiovascular Exam: RRR, No Murmur, No Clicks, No Gallops, No Rubs, No JVD - GI/Abdominal GI/Abdominal Exam: Normal Bowel Sounds, Non Tender, Non Distended, Soft - Extremities Extremities Exam: No Clubbing Present, No Cyanosis Present Additional Extremities Exam Details: Chronic venous stasis, with possible arterial insufficiency. Color changes to reflect that in the lower extremity is. Right lower extremity dressed. - Neurological Neurological Exam: Alert, Oriented x 3, No Facial Droop, Speech Intact / Clear Assessment and Plan - Patient Problems (1) Osteomyelitis Current Visit: Yes Status: Acute Code(s): M86.9 - Osteomyelitis, unspecified Qualifiers: Osteomyelitis type: other acute Osteomyelitis location: foot Laterality: right Qualified Code(s): M86.171 - Other acute osteomyelitis, right ankle and foot (2) Diabetes mellitus type II, uncontrolled Current Visit: Yes Status: Acute Code(s): E11.65 - Type 2 diabetes mellitus with hyperglycemia Qualifiers: Diabetes mellitus care home insulin use: without care home use Diabetes mellitus complication status: with skin complications Diabetes mellitus complication detail: with foot ulcer Qualified Code(s): E11.621 - Type 2 diabetes mellitus with foot ulcer; E11.65 - Type 2 diabetes mellitus with hyperglycemia; L97.509 - Non-pressure chronic ulcer of other part of unspecified foot with unspecified severity (3) Tobacco abuse Current Visit: Yes Status: Acute Code(s): Z72.0 - Tobacco use (4) Voice hoarseness Current Visit: Yes Status: Chronic Comment: 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 He stated that he had several surgeries to help repair vocal cords afterwards but it still has left him hoarse. Code(s): R49.0 - Dysphonia - Assessment / Plan Additional Assessment/Plan Details: Continue antibiotics, Rocephin and vancomycin. Today is day #2. Based on the MRI scan, I still think it would be best to get the patient up to [facility] tomorrow per the patient's wishes for vascular workup to determine best level of potential amputation. It's clear that the fourth and fifth toes may come off, but it is not clear whether or not the patient would benefit from a transmetatarsal amputation. Be that as it may, I think a vascular workup make some sense in him particularly with his diabetes and signs and terms of the color changes of venous insufficiency and possible arterial insufficiency the patient is okay with Claribel, and I started that today. I spent a lot of time discussing smoking cessation education, and in particular nicotine replacement. The patient is not sure if he wants to do a nicotine patch but he is thinking about it.
[2017-10-14] MEDS ORDERED: Insulin Glargine SoloStar Inj 100 UNIT/ML INSULN.PEN SUBCUT SCH (21:00)
[2017-10-14] MEDS ORDERED: GABAPENTIN 100 MG CAPSULE PO SCH (21:00)
[2017-10-15 04:41] LABS: Hematocrit [HCT] 37.5 % (42.0-52.0); Hemoglobin [HGB] 12.3 g/dL (14.0-18.0); MEAN CORPUSCULAR HEMOGLOBIN 28.1 PG (27-31); MEAN CORPUSCULAR HGB CONC 32.8 g/dL (33-37); MEAN CORPUSCULAR VOLUME 85.8 FL (80-90); MEAN PLATELET VOLUME 9.8 FL (7.4-12.2); RED BLOOD COUNT 4.37 10^6/uL (4.70-6.10)
[2017-10-15 06:13] LABS: BLOOD UREA NITROGEN 11 mg/dL (7-22)
--- NOTE | 2017-10-15 09:06 | ORTHO.PROG ---
Last Taken Vital Signs: Vital Signs - Last Taken Temperature 98.2 F 10/15/17 04:17 Pulse Rate 79 10/15/17 04:17 Respiratory Rate 20 10/15/17 04:17 Blood Pressure 122/77 10/15/17 04:17 Pulse Ox 99 10/15/17 04:17 Subjective: Patient having trouble sleeping at night but otherwise pain is reasonably well- controlled Objective: The dressing was taken down looking at the wound it looks good at the current time interestingly at the current time his swelling is down where feel a palpable DP and PT pulse today. Reasonable refill no sensation on the fourth toe fifth toe sensation on the plantar aspect of the foot. Laboratory Results 10/15/17 10/15/17 10/15/17 Range/Units 01:00 04:19 04:19 WBC 9.60 (4.8-10.8) 10^3/uL RBC 4.37 L (4.70-6.10) 10^6/uL Hgb 12.3 L (14.0-18.0) g/dL Hct 37.5 L (42.0-52.0) % MCV 85.8 (80-90) FL MCH 28.1 (27-31) PG MCHC 32.8 L (33-37) g/dL RDW Std Deviation 44.7 (39-50) fL RDW Coeff of Sheeba 14.6 H (11.5-14.5) % Plt Count 238 (140-350) 10*3/uL MPV 9.8 (7.4-12.2) FL Sodium 133 L (135-145) meq/L Potassium 4.3 (3.8-5.2) meq/L Chloride 106 (98-112) meq/L Carbon Dioxide 22 L (23-33) meq/L Anion Gap 5 (5-20) BUN 11 (7-22) mg/dL Creatinine 0.5 L (0.70-1.50) mg/dL Estimated GFR > 60 (>60 ml/min/1.73m(2)) BUN/Creatinine Ratio 22.00 H (6-20) Glucose 226 H (78-110) mg/dL Calculated Osmolality 281.0 (267-292) mOsm/kg Calcium 8.0 L (8.7-10.7) mg/dL Vancomycin Trough 8.34 (5.0-10.0) ug/ml Vital Signs (24 hrs) Temp Pulse Resp BP BP Pulse Ox 10/15/17 04:17 98.2 F 79 20 122/77 99 10/15/17 00:54 98.3 F 79 20 130/82 99 10/14/17 20:19 98.2 F 100 20 104/70 94 10/14/17 19:00 100 10/14/17 15:59 98.6 F 91 20 136/89 93 10/14/17 11:01 98.3 F 91 19 133/73 91 Assessment: Right foot osteomyelitis of fourth and fifth rays, poorly controlled diabetes, venous stasis changes. Plan: Patient will continue with IV antibiotics, trying to get his glucose under better control. Patient had discussed the case with Dr. Morillo and Mohamud and he will be transferred to [place] for further workup neurovascular status and further treatment and care. As I discussed with the patient and his today I think he may do fine with removal of the distal portions of the phalanges toes and necrotic bone of the fourth and fifth and a light closure with a reexploration and a couple days and possible primary closure at that time. I think the vascular workup we'll determine if this is something that needs to be altered. We discussed potential amputation at a higher level.
[2017-10-15] MEDS: HYDROcodone-APAP 10 MG-325 MG TABLET PO PRN (09:37)
[2017-10-15] MEDS: DOCUSATE 100 MG CAPSULE PO SCH ×2 (09:38→09:39)
[2017-10-15] MEDS: ENOXAPARIN SODIUM 30 MG/0.3 ML SYRINGE SUBCUT SCH (09:38)
--- NOTE | 2017-10-15 11:13 | DCSUMMARY ---
Hospitalization Summary Admit Date: 10/13/2017 Discharge Date: 10/15/17 Primary Diagnosis:: osteomyelitis right foot Hospital Course: This very pleasant 42-year-old male that was admitted on 10/13/[address] Ann as the patient had a diabetic foot infection that needed a washout. We ended up showing improving that the patient had fourth and fifth toe osteomyelitis and the patient was placed on antibiotics postoperatively. He was febrile initially in the hospital stay but did not develop any signs of sepsis and blood cultures have remained negative. He is on a regimen right now of Rocephin and vancomycin. I spoke with infectious disease in [place] regarding that regimen of antibiotics. Blood sugars and been in the 200s It appears that the patient will need amputation for this osteomyelitis. Overall, I spoke with orthopedics, infectious disease in [place], and we'll fill it would be best to do this at a center where we can do more thorough vascular workup to determine the best level for amputation. We do not have the capability here. He does have chronic venous stasis color changes and dopplered weekly in the OR so it could be that he has some arterial insufficiency. He does smoke. Terms of his diabetes, he has had some weight gain problems with insulin as well as mental status changes on prior insulin regimen so he prefers not to be on that. He's had failures and several other medications and we worked on getting him on Januvia to try and treat this. So far he is tolerating Januvia although this is day #2 of that therapy. Blood sugars up in the 200s fairly consistently. Again, because of complications on insulin therapy in the past it is does not work to use that for him in the hospital. He refuses to use it as well. He underwent dressing change today. He is willing to do amputation to help this heal overall from osteomyelitis but it is not clear if he'll need just the fourth and fifth toes amputated or he'll need a transmetatarsal amputation or a BKA at this point. Given this, I spoke with the hospitalists in [place] who agreed to accept the patient in transfer. Cultures still pending but Gram stain showed gram-positive cocci and gram- positive rods. Nasal MRSA was positive. Today, no completes of chest pain, shortness breath, nausea or vomiting. He is tolerating Januvia well. Assessment and Plan: 1. As per discharge assessments noted 2. Disposition: Patient is discharged to [facility] 3. Condition on discharge, stable and improved. But of course with osteomyelitis, condition could always deteriorate. 4. Diet: regular diet 5. Activities: Nonweightbearing on right foot for now 6. Follow-Up: 1. We will arrange a follow-up in [place], [place] in the next 4-6 weeks to establish with a primary care provider there. 7. Medications at the Time of Discharge: Active Medications Generic Name Dose Route Start Last Admin Trade Name Freq PRN Reason Stop Dose Admin Acetaminophen 325 - 650 mg 10/13/17 20:37 Tylenol PO Q4H PRN pain or fever Hydrocodone Bitart/Acetaminophen 1 - 2 tab 10/13/17 20:37 10/15/17 09:37 Madeline 10/325 Tab PO 2 tab Q4H PRN Administration Pain Al Hydroxide/Mg Hydroxide 10 - 20 ml 10/13/17 20:37 Mylanta Liquid PO Q6H PRN Indigestion Bisacodyl 5 mg 10/13/17 20:37 Dulcolax Tab PO BID PRN Constipation Bisacodyl 10 mg 10/13/17 20:37 Bisac-Evac Supp RECTAL ONCE PRN Constipation Calcium Carbonate 1 - 2 tab 10/13/17 20:37 Tums PO Q4H PRN Indigestion Dextrose 30 - 40 ml 10/13/17 21:40 Dextrose 50% Inj IVP Q15M PRN BG < 70 unable to take oral Diphenhydramine HCl 25 - 50 mg 10/13/17 20:37 Benadryl PO Q4H PRN Itching Docusate Sodium 100 mg 10/13/17 21:00 10/15/17 09:39 Colace PO Not Given BID JULIO Enoxaparin Sodium 30 mg 10/14/17 09:00 10/15/17 09:38 Lovenox Inj SUBCUT 30 mg BID JULIO Administration Gabapentin 100 mg 10/14/17 21:00 10/14/17 20:26 Neurontin PO 100 mg BEDTIME JULIO Administration Glucagon 1 mg 10/13/17 21:40 Glucagen IM ONCE PRN BG < 70 NPO & NO IV Glucose 15 - 20 gm 10/13/17 21:40 Insta-Glucose Gel PO Q15M PRN BG < 70 Hydromorphone HCl 1 mg 10/13/17 20:37 Dilaudid Inj IVP Q1H PRN Moderate to Severe Pain Sodium Chloride 25 mls @ 200 mls/hr 10/13/17 20:37 Normal Saline 0.9% IV .Post Infusion PRN No Primary IV for Flush ONLY Acetaminophen 1,000 mg in 100 mls @ 400 mls/hr 10/13/17 21:01 10/13/17 23:48 Ofirmev 1000mg Inj IV 400 mls/hr Q8H PRN Administration Pain Ceftriaxone Sodium 2 gm/ 100 mls @ 200 mls/hr 10/14/17 14:00 10/14/17 14:15 Sodium Chloride IV 200 mls/hr Q24H JULIO Administration Vancomycin HCl 2 gm/ Sodium 500 mls @ 333.333 mls/hr 10/15/17 09:30 10/15/17 09:38 Chloride IV 333.333 mls/hr Q8H JULIO Administration Ondansetron HCl 4 mg 10/13/17 20:37 Zofran Inj IVP Q4H PRN NAUSEA / VOMITING Ondansetron HCl 8 mg 10/13/17 20:37 Zofran Odt PO Q6H PRN NAUSEA Prochlorperazine Maleate 10 mg 10/13/17 20:37 Compazine PO Q6H PRN NAUSEA Sitagliptin Phosphate 50 mg 10/15/17 13:15 Januvia Tab PO DAILY JULIO 8. Time, care, counseling and coordination of care for this discharge is greater than 30 minutes. Exam - Vitals Vital Signs: Vital Signs Temperature 97.4 F Temperature Source Temporal Artery Scan Pulse Rate [Apical] 90 Pulse Rate [Pulse Oximeter] 88 Pulse Rate 98 Respiratory Rate 20 Blood Pressure [Right Arm] 131/89 Blood Pressure [Left Arm] 130/82 Blood Pressure 136/82 Pulse Ox 90 Oxygen Flow Rate 4 Oxygen Delivery Method Room Air Height 6 ft 5 in Weight 325 lb - General General Appearance: No Acute Distress, Cooperative - Eye Eye Exam: POSITIVE: No Scleral Icterus - ENT ENT Exam: POSITIVE: Mucous Membranes Moist - Respiratory Respiratory Exam: POSITIVE: Clear to Auscultation - Bilaterally, Breathing Non Labored - Cardiovascular Cardiovascular Exam: POSITIVE: RRR, No Murmur, No Clicks, No Gallops, No Rubs, No JVD - GI/Abdominal GI/Abdominal Exam: POSITIVE: Normal Bowel Sounds, Non Tender, Non Distended, Soft - Extremities Extremities Exam: POSITIVE: No Clubbing Present, No Edema Present, No Cyanosis Present Additional Extremities Exam Details: Right foot is dressed. - Neurological Neurological Exam: POSITIVE: Alert, Oriented x 3, No Facial Droop, Speech Intact / Clear Data Peritnent Studies: 10/13/17 10/13/17 10/13/17 16:55 16:55 16:55 WBC 17.23 H Hgb Hct Plt Count Neutrophils % (Manual) 83 H Band Neutrophils % 0 Lymphocytes % (Manual) 15 ESR 72 H Sodium Potassium Chloride Carbon Dioxide Anion Gap BUN Creatinine Estimated GFR BUN/Creatinine Ratio Glucose Hemoglobin A1c Calculated Osmolality Calcium 9.0 Total Bilirubin 0.7 AST 11 L ALT 21 Alkaline Phosphatase 71 C-Reactive Protein Total Protein 8.4 H Albumin 3.9 Globulin 4.5 H Albumin/Globulin Ratio 0.80 L TSH Free T4 Vancomycin Trough 10/13/17 10/14/17 10/14/17 16:55 04:36 04:36 WBC Hgb Hct Plt Count Neutrophils % (Manual) Band Neutrophils % Lymphocytes % (Manual) ESR Sodium Potassium Chloride Carbon Dioxide Anion Gap BUN Creatinine Estimated GFR BUN/Creatinine Ratio Glucose Hemoglobin A1c 10.22 H Calculated Osmolality Calcium Total Bilirubin AST ALT Alkaline Phosphatase C-Reactive Protein 20.8 H Total Protein Albumin Globulin Albumin/Globulin Ratio TSH 1.09 Free T4 2.06 H Vancomycin Trough 10/15/17 10/15/17 10/15/17 01:00 04:19 04:19 WBC 9.60 Hgb 12.3 L Hct 37.5 L Plt Count 238 Neutrophils % (Manual) Band Neutrophils % Lymphocytes % (Manual) ESR Sodium 133 L Potassium 4.3 Chloride 106 Carbon Dioxide 22 L Anion Gap 5 BUN 11 Creatinine 0.5 L Estimated GFR > 60 BUN/Creatinine Ratio 22.00 H Glucose 226 H Hemoglobin A1c Calculated Osmolality 281.0 Calcium 8.0 L Total Bilirubin AST ALT Alkaline Phosphatase C-Reactive Protein Total Protein Albumin Globulin Albumin/Globulin Ratio TSH Free T4 Vancomycin Trough 8.34 Patient Problems - Patient Problem List (1) Osteomyelitis Current Visit: Yes Status: Acute Code(s): M86.9 - Osteomyelitis, unspecified Qualifiers: Osteomyelitis type: other acute Osteomyelitis location: foot Laterality: right Qualified Code(s): M86.171 - Other acute osteomyelitis, right ankle and foot Category: Medical (2) Diabetes mellitus type II, uncontrolled Current Visit: Yes Status: Acute Code(s): E11.65 - Type 2 diabetes mellitus with hyperglycemia Qualifiers: Diabetes mellitus fpc insulin use: without manager terminal use Diabetes mellitus complication status: with skin complications Diabetes mellitus complication detail: with foot ulcer Qualified Code(s): E11.621 - Type 2 diabetes mellitus with foot ulcer; E11.65 - Type 2 diabetes mellitus with hyperglycemia; L97.509 - Non-pressure chronic ulcer of other part of unspecified foot with unspecified severity Category: Medical (3) Tobacco abuse Current Visit: Yes Status: Acute Code(s): Z72.0 - Tobacco use Category: Medical (4) Voice hoarseness Current Visit: Yes Status: Chronic Code(s): R49.0 - Dysphonia Category: Medical (5) MRSA nasal colonization Current Visit: Yes Status: Acute Code(s): Z22.322 - Carrier or suspected carrier of Methicillin resistant Staphylococcus aureus Category: Medical
[2017-10-15 12:05] VITALS: BP 124/76; TEMP 97.2; O2SAT 94
[2017-10-15] MEDS ORDERED: sitaGLIPtin Tab 100 MG TAB PO SCH (13:15)
--- NOTE | 2017-10-15 15:41 | PT AM DAY ---
Diagnosis : Diabetic Foot Ulcer AM - Physical Therapy S: The patient reports he believes after his dressing is changed today and inspected by Dr. Ann, he is to be transferred to [place]. According to the nursing staff as well as Dr. Ann, the patient is being transferred up to [place] due to concerns with his vascular abilities. O: Today's therapy consisted of a stand pivot transfer from his bed to the wheelchair. The patient was brought downstairs to physical therapy in the wound room per Dr. Ann's request. His post op bandage was removed and all areas were cleansed. The wound measured 3.5 centimeters wide x 1.5 centimeters long x 2.7 centimeters deep at its greatest depth. The wound had clean, well defined surgical edges with a moderate amount of sanguineous drainage. Following discussion about possible 4th and 5th toe amputation as well as the patient's lower extremity vascularization, it was rewrapped with a clean dressing with Promogran Lilo AG placed in the wound bed followed by clean bandages, all provided by the physical therapy department. The patient was then placed in his cast shoe that he presented into the hospital with. He then performed a stand pivot transfer again and was taken via wheelchair back up to his room. A: At this time, per Dr. Ann, the patient is appropriate for at least a 4th and 5th toe amputation due to the infection. P: Patient is being transferred to [place]. [facility]
== END 2017-10-15 12:55 | disposition short-term general hospital (02) | DRG 504 ==
LOC: OPS 15:38 → MED/SURG 20:27
PROVIDERS: ADMIT Orthopaedic Surgery; ATTEND Orthopaedic Surgery